=== PATIENT | female | born 1970 | race Caucasian/White ===

== ENCOUNTER 2016-11-02 12:50 | Emergency (ER) | payer OTHER ==
[2016-11-02 13:10] VITALS: BP 145/88
[2016-11-02] MEDS ORDERED: Ketorolac 60 MG/2 ML SDV IM ONE (13:41)
[2016-11-02] MEDS ORDERED: HYDROmorphone 0.5 MG/0.5 ML Syringe IVPUSH ONE (13:41)
--- NOTE | 2016-11-02 13:56 | EDM.PDOC ---
ED HPI LOWER BACK PAIN/INJURY - General Chief Complaint: Back Pain or Injury Stated Complaint: LT HIP PAIN Time Seen by Provider: 11/02/16 13:28 Source of Information: Reports: Patient History Limitations: Reports: No limitations - History of Present Illness INITIAL COMMENTS - FREE TEXT/NARRATIVE: Patient presents for evaluation and treatment of left low back pain. Patient reports that on Thursday she slipped on ice. She stated that she did not fall, no head trauma. She states that since then she has been experiencing some low back pain on the left side radiating to her left hip and down her left leg. She denies any pain to the right side. Patient states on Thursday she went to the clinic. She was given some prednisone and has been taking ibuprofen for the pain. She feels that the pain is worsening and not improving. Current symptoms include pain to the left low back with radiation to the left hip and left lower leg, numbness and tingling into the left leg. She denies any fevers, chills, nausea, vomiting, urinary incontinence, stool incontinence or any urinary symptoms. Patient is on prednisone 20 mg daily for 5 days. Symptom Onset Date: 10/29/16 Timing/Duration: Reports: Getting worse Location: Reports: lower, radiating pain Context: Reports: fall Associated Symptoms: Reports: Difficulty walking. Denies: Fever/chills, Nausea/ vomiting, Problems urinating Treatments HAT LINER: Reports: NSAIDS, Other medication(s) (prednisone 20mg) - Related Data Allergies/ADRs: Allergies Allergy/AdvReac Type Severity Reaction Status Date / Time No Known Allergies Allergy Verified 08/12/14 19:27 Home Meds: Home Meds Levothyroxine [Synthroid] 50 mcg PO ACBRK 08/12/14 [History] Omeprazole [Prilosec] 20 mg PO DAILY 08/12/14 [History] Orphenadrine [Norflex] 100 mg PO BID PRN #15 tab.er 11/02/16 [Rx] Prednisone [IMW: predniSONE] 40 mg PO WITHBREAKFAST #5 tab 11/02/16 [Rx] traMADol [Ultram] 50 mg PO Q6H PRN #12 tablet 11/02/16 [Rx] Past Medical History Gastrointestinal History: Reports: GERD Musculoskeletal History: Reports: Back pain, chronic Endocrine/Metabolic History: Reports: Hypothyroidism - Past Surgical History GI Surgical History: Reports: Appendectomy, Cholecystectomy Musculoskeletal Surgical History: Reports: Shoulder surgery Social & Family History - Tobacco Use Smoking Status *Q: Never Smoker Second Hand Smoke Exposure: No - Caffeine Use Caffeine Use: Reports: Soda, Tea - Alcohol Use Days Per Week of Alcohol Use: 0 - Recreational Drug Use Recreational Drug Use: No ED ROS GENERAL - Review of Systems Review Of Systems: See Below Constitutional: Denies: fever, chills GI/Abdominal: Denies: Stool incontinence : Denies: dysuria, flank pain, incontinence Musculoskeletal: Reports: back pain (left low back pain) Skin: Denies: wound Neurological: Reports: Numbness (left leg), Tingling (left leg), Difficulty Walking (due to pain) ED EXAM,LOWER BACK PAIN/INJURY - Physical Exam Exam: See Below Exam Limited By: No limitations General Appearance: alert, WD/WN, moderate distress Respiratory/Chest: no respiratory distress, lungs clear, normal breath sounds Cardiovascular: normal peripheral pulses, regular rate, rhythm, no murmur Back Exam: normal inspection, decreased range of motion (able to flex, extend, rotate and laterally flex with slight decreased in ROM and with minor pain) Neurological: alert, normal mood/affect, normal dorsiflexion, normal plantar flexion, straight leg raise (L), straight leg raise (R) (causes pain to left) Psychiatric: normal affect, normal mood Skin Exam: Warm, Dry, Normal color Course - Vital Signs Last Recorded V/S: Last Vital Signs Temp 36.8 C 11/02/16 13:09 Pulse 82 11/02/16 13:09 Resp 20 11/02/16 13:09 BP 145/88 H 11/02/16 13:09 Pulse Ox 98 11/02/16 13:09 - Orders/Labs/Meds Meds: Medications Discontinued Medications Generic Name Dose Route Start Last Admin Trade Name Freq PRN Reason Stop Dose Admin Hydromorphone HCl 0.5 mg 11/02/16 13:41 11/02/16 13:49 Dilaudid IVPUSH 11/02/16 13:42 0.5 mg ONETIME ONE Administration Ketorolac Tromethamine 60 mg 11/02/16 13:41 11/02/16 13:48 Toradol IM 11/02/16 13:42 60 mg ONETIME ONE Administration - Re-Assessments/Exams Free Text/Narrative Re-Assessment/Exam: 11/02/16 13:45 IM Toradol and Dilaudid for pain relief. Will extend her prednisone. I Do believe that she does have some sciatica. discussed x-rays. I do not feel that these will give us much additional information. We will discharge her home at this time. Discharge instructions as documented. Departure - Departure Time of Disposition: 13:48 Disposition: Home, Self-Care 01 Condition: fair Clinical Impression: Sciatica Prescriptions: Orphenadrine [Norflex] 100 mg PO BID PRN #15 tab.er PRN Reason: Muscle Spasm Prednisone [IMW: predniSONE] 40 mg PO WITHBREAKFAST #5 tab traMADol [Ultram] 50 mg PO Q6H PRN #12 tablet PRN Reason: Pain Instructions: Sciatica, [id number] Referrals: Sydnee Waddell [employer] PEELING MACHINE OPERATOR [Primary Care Provider] - Forms: ED Department Discharge Additional Instructions: you were given medication in the ER that can affect your ability to drive and operate machinery. No driving or operating machinery within 12 hours of taking prescription narcotic pain medication. Increase the prednisone to 40 mg or 2 tabs a day for the next 5 days. Take the Norflex one tab twice a day as needed for muscle pain and spasm. may take the tramadol as needed for severe pain. No driving or operating within 12 hours of taking the tramadol., Tramadol Can be habit-forming, I recommend you take as few of these as needed to control your pain. Utilize ice or moist heat to the sore areas. expect to Be sore for the next week. Should your symptoms persist beyond one week I recommend followup with Chen waddell Please return to the ER should your symptoms change or worsen.
== END 2016-11-02 14:08 | disposition home or self-care (01) ==
LOC: JD.ED 12:50
DX: M54.40 Lumbago with sciatica, unspecified side (principal); K21.9 Gastro-esophageal reflux disease without esophagitis; E03.9 Hypothyroidism, unspecified; Z90.49 Acquired absence of other specified parts of digestive tract; Z98.890 Other specified postprocedural states; Z79.899 Other long term (current) drug therapy
CPT/HCPCS: 96372; 99283; J1170; J1885; 99284

== ENCOUNTER 2018-10-06 14:02 | Inpatient (IN) | payer OTHER ==
--- NOTE | 2018-10-06 14:53 | EDM.PDOC ---
ED HPI GENERAL MEDICAL PROBLEM - General Chief Complaint: Respiratory Problem Stated Complaint: LOW O2 Time Seen by Provider: 10/06/18 14:53 Source of Information: Reports: Patient - History of Present Illness INITIAL COMMENTS - FREE TEXT/NARRATIVE: Patient is here today sent by her PCP from the clinic for evaluation of dyspnea , cough and hypoxia. Patient was actually initially diagnosed with influenza B in June. She states that her cough never fully went away after this. She began to feel quite run down last week, she was diagnosed with influenza on 10/01/2018. She was started on Tamiflu. Initially she was started on an albuterol inhaler but was not having any improvement with this so this was switched to an albuterol nebulizer. Patient was doing a nebulized albuterol treatments at home every 3 hours and still feeling very short of breath. She was back to the clinic today, for worsening symptoms. At that time her oxygen level was maintaining 86%. Even on 2 L of oxygen over there. Did not come above 90%. Patient states that she feels short of breath, is having a nonproductive cough No history of respiratory disease, no asthma or COPD. She has never smoked. - Related Data Allergies Allergy/AdvReac Type Severity Reaction Status Date / Time No Known Allergies Allergy Verified 10/06/18 14:26 Home Meds: Home Meds Levothyroxine [Synthroid] 50 mcg PO ACBRK 08/12/14 [History] Omeprazole [Prilosec] 20 mg PO DAILY 08/12/14 [History] Albuterol [Proventil Neb Soln] 1.25 mg NEB Q6H 10/06/18 [History] Oseltamivir [Tamiflu] 1 tab PO BID 10/06/18 [History] Past Medical History HEENT History: Reports: Impaired Vision Respiratory History: Reports: Bronchitis, Recurrent Other Respiratory History: hx influenza Gastrointestinal History: Reports: Cholelithiasis, GERD 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, Musculoskeletal History: Reports: Back Pain, Chronic Endocrine/Metabolic History: Reports: Hypothyroidism - Infectious Disease History Infectious Disease History: Reports: Influenza - Past Surgical History HEENT Surgical History: Reports: Oral Surgery GI Surgical History: Reports: Cholecystectomy Female Surgical History: Reports: Endometrial Ablation, Tubal Ligation Musculoskeletal Surgical History: Reports: Shoulder Surgery Social & Family History - Family History Family Medical History: Noncontributory - Tobacco Use Smoking Status *Q: Never Smoker - Caffeine Use Caffeine Use: Reports: Soda - Recreational Drug Use Recreational Drug Use: No - Living Situation & Occupation Living situation: Reports: , with Significant Other (Fiance) 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 Denies: Wheezing, Pleuritic Chest Pain, Sputum Cardiovascular: Reports: No Symptoms GI/Abdominal: Reports: Decreased Appetite. Denies: Nausea, Vomiting Musculoskeletal: Reports: No Symptoms Skin: Reports: No Symptoms Neurological: Reports: No Symptoms ED EXAM, GENERAL - Physical Exam Exam: See Below Exam Limited By: No Limitations General Appearance: Alert, WD/WN, Mild Distress (acutely ill) Eye Exam: Bilateral Eye: EOMI, Normal Inspection Ears: Normal External Exam, Normal Canal, Normal TMs Nose: Normal Inspection, Normal Mucosa Throat/Mouth: Normal Inspection, Normal Oropharynx Head: Atraumatic, Normocephalic Neck: Normal Inspection, Supple, Non-Tender Respiratory/Chest: No Respiratory Distress, Wheezing (Scattered mild wheeze bilaterally). No: Crackles, Rales, Rhonchi Cardiovascular: Regular Rate, Rhythm, No Murmur GI/Abdominal: Normal Bowel Sounds, Soft, Non-Tender Neurological: Alert, Oriented, No Motor/Sensory Deficits Psychiatric: Normal Affect, Normal Mood Skin Exam: Warm, Dry, Intact Course - Vital Signs Last Recorded V/S: Last Vital Signs Temp 98.0 F 10/06/18 14:28 Pulse 79 10/06/18 14:28 Resp 20 10/06/18 14:28 BP 132/73 10/06/18 14:28 Pulse Ox 73 L 10/06/18 16:54 - Orders/Labs/Meds Orders: Active Orders 24 hr Category Date Time Status Dextrose 5%-Lactated Ringers with KCl 20 mEq @ 150 mL/ Med 10/06/18 18:00 Ordered Hr (1000 mL) Dextrose 5%-Lact Ringers w/KCl [D5 LR with 20 mEq KCl] 1,000 ml IV ASDIRECTED Sodium Chloride 0.9% [Normal Saline] 100 ml Med 10/06/18 16:15 Active IV ASDIRECTED Medication Orders Sodium Chloride (Normal Saline) 100 mls @ 60 mls/hr IV ASDIRECTED CARO Last Admin: 10/06/18 16:23 Dose: 60 mls/hr Potassium Cl/Dextrose/Lact Ringer's (D5 Lr With 20 Meq Kcl) 1,000 mls @ 150 mls /hr IV ASDIRECTED CARO Labs: Laboratory Tests 10/06/18 10/06/18 10/06/18 Range/Units 15:15 15:15 15:15 WBC 5.17 (3.98-10.04) K/mm3 RBC 4.36 (3.98-5.22) M/mm3 Hgb 12.3 (11.2-15.7) gm/L Hct 38.0 (34.1-44.9) % MCV 87.2 (79.4-94.8) fl MCH 28.2 (25.6-32.2) pg MCHC 32.4 (32.2-35.5) g/dl RDW Std Deviation 39.8 (36.4-46.3) fL Plt Count 173 L (182-369) K/mm3 MPV 8.6 L (9.4-12.3) fl Neutrophils % (Manual) 83 H (40-60) % Band Neutrophils % 1 (0-10) % Lymphocytes % (Manual) 15 L (20-40) % Atypical Lymphs % 0 % Monocytes % (Manual) 1 L (2-10) % Eosinophils % (Manual) 0 L (0.7-5.8) % Basophils % (Manual) 0 L (0.1-1.2) Platelet Estimate Adequate RBC Morph Comment Normal D-Dimer, Quantitative 1.98 H (0.19-0.50) mg/L Sodium 135 L (136-145) mEq/L Potassium 3.0 L (3.5-5.1) mEq/L Chloride 96 L (98-107) mEq/L Carbon Dioxide 30 (21-32) mEq/L Anion Gap 12.0 (5-15) BUN 17 (7-18) mg/dL Creatinine 0.9 (0.55-1.02) mg/dL Est Cr Clr Drug Dosing 57.06 mL/min Estimated GFR (MDRD) > 60 (>60) mL/min BUN/Creatinine Ratio 18.9 H (14-18) Glucose 107 H (74-106) mg/dL Calcium 8.5 (8.5-10.1) mg/dL Total Bilirubin 0.3 (0.2-1.0) mg/dL AST 52 H (15-37) U/L ALT 45 (14-59) U/L Alkaline Phosphatase 68 (46-116) U/L Troponin I < 0.017 (0.00-0.056) ng/mL C-Reactive Protein 12.1 H* (<1.0) mg/dL Total Protein 7.8 (6.4-8.2) g/dl Albumin 3.0 L (3.4-5.0) g/dl Globulin 4.8 gm/dL Albumin/Globulin Ratio 0.6 L (1-2) Meds: Medications Generic Name Dose Route Start Last Admin Trade Name Freq PRN Reason Stop Dose Admin Sodium Chloride 100 mls @ 60 mls/hr 10/06/18 16:15 10/06/18 16:23 Normal Saline IV 60 mls/hr ASDIRECTED CARO Administration Potassium Cl/Dextrose/Lact Ringer's 1,000 mls @ 150 mls/hr 10/06/18 18:00 D5 Lr With 20 Meq Kcl IV ASDIRECTED CARO Discontinued Medications Generic Name Dose Route Start Last Admin Trade Name Freq PRN Reason Stop Dose Admin Azithromycin 500 mg 10/06/18 17:55 Zithromax PO 10/06/18 17:56 ONETIME ONE Sodium Chloride 1,000 mls @ 999 mls/hr 10/06/18 14:54 10/06/18 15:15 Normal Saline IV 10/06/18 15:54 999 mls/hr ONETIME ONE Administration Iopamidol 100 ml 10/06/18 16:13 10/06/18 16:22 [id number] (76%) IVPUSH 10/06/18 16:14 100 ml ONETIME ONE Administration Sodium Chloride 10 ml 10/06/18 16:13 10/06/18 16:23 Saline Flush FLUSH 10/06/18 16:14 10 ml ONETIME ONE Administration - Re-Assessments/Exams Free Text/Narrative Re-Assessment/Exam: Chest x-ray demonstrates pulmonary congestion, CTA of the chest was performed after her d-dimer was elevated and this demonstrated patchy increased density within both lungs. Differential including pulmonary edema from CHF versus multifocal pneumonia. Certainly with patient's history, pneumonia is the more likely cause of her symptoms. 10/06/18 17:58 WBC 5170 with 83 percent neutrophils and 1 band. Troponin negative. CRP 12.1. Potassium is low at 3.0, likely from her not eating much recently. Will add potassium to LR and start another liter of fluids. 10/06/18 18:01 Patient is maintaining 92-94% on 3 L of oxygen. This was taken off for her to walk to the bathroom and she did drop down to the mid 70s for oxygen saturation. With her pneumonia and hypoxia, discussed with Dr. Patton/hospitalist and patient will be admitted to [facility]. Her first dose of azithromycin 500 mg will be administered here in the emergency department. She is a full code. 10/06/18 18:06 Departure - Departure Time of Disposition: 18:07 Disposition: Refer to Observation Condition: Fair Clinical Impression: Influenza A, Pneumonia, Hypoxia, Hypokalemia - Discharge Information Referrals: Sydnee Waddell, SENIOR WEALTH ADVISOR [Primary Care Provider] - Forms: ED Department Discharge - My Orders Last 24 Hours: My Active Orders 10/06/18 16:15 Sodium Chloride 0.9% [Normal Saline] 100 ml IV ASDIRECTED 10/06/18 18:00 Dextrose 5%-Lactated Ringers with KCl 20 mEq @ 150 mL/Hr (1000 mL) Dextrose 5%- Lact Ringers w/KCl [D5 LR with 20 mEq KCl] 1,000 ml IV ASDIRECTED - Assessment/Plan Last 24 Hours: My Active Orders 10/06/18 16:15 Sodium Chloride 0.9% [Normal Saline] 100 ml IV ASDIRECTED 10/06/18 18:00 Dextrose 5%-Lactated Ringers with KCl 20 mEq @ 150 mL/Hr (1000 mL) Dextrose 5%- Lact Ringers w/KCl [D5 LR with 20 mEq KCl] 1,000 ml IV ASDIRECTED
[2018-10-06] MEDS ORDERED: Sodium Chloride 0.9% 1,000 ML IV ONE (14:54)
[2018-10-06] MEDS ORDERED: Iopamidol 755 Mg/ML 100 ML Bottle IVPUSH ONE (16:13)
[2018-10-06] MEDS ORDERED: Sodium Chloride 0.9% 100 ML IV SCH (16:15)
[2018-10-06] MEDS: Sodium Chloride 0.9% 10 ML Syringe FLUSH ONE ×2 (16:22→16:23)
--- NOTE | 2018-10-06 16:55 | CT ---
CT chest Technique: Multiple axial sections through the chest were obtained. Intravenous contrast was utilized. Study has been performed as a pulmonary angiogram protocol. Findings: Pulmonary arteries are moderately opacified. No filling defects are seen to indicate pulmonary embolism. Mediastinum shows slightly prominent lymph nodes most likely on a previous inflammatory basis. Aorta shows no aneurysm. Heart is enlarged. Diffuse fatty infiltration is seen throughout the liver. Bilateral patchy areas of increased density are seen within both lungs. Differential includes areas of pulmonary edema versus multifocal pneumonia. Impression: 1. Cardiomegaly. Fatty infiltration within the liver. 2. No findings of pulmonary embolism. 3. Patchy increased density within both lungs with differential including pulmonary edema from CHF versus multifocal pneumonia. Diagnostic code #3
--- NOTE | 2018-10-06 16:55 | CR ---
Chest: Two views of the chest were obtained. Comparison: Prior chest x-ray of 08/10/18. Heart is slightly enlarged. Pulmonary vessels are felt to be mildly congested. Lungs otherwise are clear. Bony structures appear within normal limits for the patient's age. Impression: 1. Findings suspicious for mild CHF. Diagnostic code #3
[2018-10-06] MEDS ORDERED: Azithromycin 250 MG Tab PO ONE (17:55)
[2018-10-06] MEDS: Dextrose 5%-Lact Ringers w/KCl 1,000 ML IV SCH (18:24)
[2018-10-06] MEDS ORDERED: hydrALAZINE 20 MG/ML SDV IVPUSH PRN (18:58)
[2018-10-06] MEDS ORDERED: Metoprolol Tartrate 5 MG/5 ML SDV IVPUSH PRN (18:58)
[2018-10-06] MEDS ORDERED: Ondansetron 4 MG/2 ML SDV IV PRN (18:59)
[2018-10-06] MEDS ORDERED: Ketorolac 30 MG/ML SDV IV PRN (18:59)
[2018-10-06] MEDS ORDERED: Docusate Sodium 100 MG Cap PO PRN (18:59)
[2018-10-06] MEDS ORDERED: Albuterol/Ipratropium 3.0-0.5 MG/3 ML Neb Soln NEB PRN (18:59)
[2018-10-06] MEDS ORDERED: HYDROmorphone 1 MG/ML Syringe IVPUSH PRN (18:59)
[2018-10-06] MEDS ORDERED: LORazepam 2 MG/ML SDV IV PRN (18:59)
[2018-10-06] MEDS ORDERED: Polyethylene Glycol 3350 Powder 17 GM Packet PO PRN (18:59)
[2018-10-06] MEDS ORDERED: Acetaminophen 325 MG Tab PO PRN (18:59)
[2018-10-06] MEDS ORDERED: Temazepam 15 MG Cap PO PRN (18:59)
[2018-10-06] MEDS ORDERED: Bisacodyl 5 MG Tab PO PRN (18:59)
[2018-10-06] MEDS ORDERED: Albuterol 0.042% 1.25 MG/3 ML Neb Soln NEB SCH (19:00)
[2018-10-06] MEDS ORDERED: cefTRIAXone 1 GM in Sodium Chloride 0.9% 100 ML IV ONE (19:05)
[2018-10-06 19:36] LABS: HEMOGLOBIN A1C 6.2 % (4.50-6.20)
[2018-10-06] MEDS ORDERED: Potassium Chloride 20 MEQ Tab.ER PO STA (19:47)
[2018-10-06] MEDS: Albuterol 0.042% 1.25 MG/3 ML Neb Soln NEB SCH (20:58)
[2018-10-06] MEDS ORDERED: Oseltamivir 30 MG Cap PO SCH (21:00)
[2018-10-06] MEDS ORDERED: guaiFENesin/Dextromethorphan 100-10 MG/5 ML Soln 5 ML Cup PO PRN (21:00)
[2018-10-06] MEDS ORDERED: Aluminum Hydroxide/Magnesium Hydroxide/Simethicone Susp 30 ML Cup PO PRN (21:12)
[2018-10-07] MEDS: Potassium Chloride 20 MEQ Tab.ER PO SCH ×2 (00:40→03:47)
[2018-10-07] MEDS: Albuterol 0.042% 1.25 MG/3 ML Neb Soln NEB SCH (02:26)
[2018-10-07] MEDS: Dextrose 5%-Lact Ringers w/KCl 1,000 ML IV SCH ×3 (03:47→19:47)
[2018-10-07] MEDS: Pantoprazole 40 MG Tab.CR PO SCH (06:20)
[2018-10-07] MEDS: Levothyroxine 50 MCG Tab PO SCH (06:20)
--- NOTE | 2018-10-07 07:54 | PCM.HP ---
H&P History of Present Illness - General Date of Service: 10/07/18 Admit Problem/Dx: Admission Diagnosis/Problem Admission Diagnosis/Problem Pneumonia Source of Information: Patient, Old Records, Provider, RN, RN Notes Reviewed History Limitations: Reports: No Limitations - History of Present Illness Initial Comments - Free Text/Narative: Soco Landaverde is a 48 yo female who presented to our ED on 10/06/18 after being seen by her PCP for celiac, coughinfluenza B in June reports her cough never fully went away after this. Over the last week she started to feel run down again and was diagnosed on 10/01/18 with influenza. She was then started on Tamiflu. She started on albuterol inhaler but did not have any improvement so she was switched and nebulizers. She's been doing albuterol treatments for 3 hours and still feels short of breath. She returned to her PCP office and saturations were found to be 86%. She was placed on 2 L of oxygen and sats remained below 90. Reports shortness of breath and nonproductive cough. She has no history of any airway disease, asthma, or COPD. She was never a smoker. In the ED temperature 90.8F. Pulse 79. Respirations 20. Blood pressure 132/ 73. Pulse ox is very low at 73%. Labs are obtained: CBC is 5.17. Hemoglobin 12.3. Hematocrit 30.0. She's normocytic. Pulse are low at 173,000. Neutrophils are elevated at 83%. Band neutrophils are 1%. Her is high at 1.98. Sodium low at 135. Potassium low at 3.0. Chloride low at 96. Prophylaxis 30. Anion gap is 12. BUN is 17. Creatinine 0.9. GFR is greater than 60. Glucose was 7. Calcium 8.5. Total bilirubin 0.3. AST 52, ALT 45, alkaline phosphatase 68. Troponin is less than 0.017. CRP is high at 12.1. It protein 7.8. Albumin is 3.0. She started on D5 LR with 20 minute once potassium and 150 mils an hour. She is also given azithromycin. Chest x-ray shows a slightly enlarged heart and mildly congested pulmonary vessels. Findings suspicious for CHF. CT of the chest obtained and interpreted by Dr. Orr as "1. Cardiomegaly. Fatty infiltration within the liver. 2. No findings of pulmonary embolism. 3. Patchy increased density within both lungs with differential including pulmonary edema from CHF versus multifocal pneumonia. She is placed on 3 L of oxygen and maintain sats in the 92-94 range , however when she was taken off oxygen and attempted to walk to the restroom her saturations dropped to the mid 70s. She carries a history of: Recurrent bronchitis, influenza, cholestasis, GERD, endometrial ablation, chronic back pain, hypothyroidism. She was never a smoker. Her PCP is Aurora Waddell NP. She is a full code. - Related Data Allergies/Adverse Reactions: Allergies Allergy/AdvReac Type Severity Reaction Status Date / Time No Known Allergies Allergy Verified 10/06/18 14:26 Home Medications: Home Meds Levothyroxine [Synthroid] 50 mcg PO ACBRK 08/12/14 [History] Omeprazole [Prilosec] 20 mg PO DAILY 08/12/14 [History] Albuterol [Proventil Neb Soln] 1.25 mg NEB Q6H 10/06/18 [History] Oseltamivir [Tamiflu] 1 tab PO BID 10/06/18 [History] Past Medical History HEENT History: Reports: Other (See Below) Other HEENT History: past ear surgery r/t ear fluttering Cardiovascular History: Reports: None Respiratory History: Reports: Bronchitis, Recurrent, Sleep Apnea, Other (See Below) Other Respiratory History: hx influenza past two years Gastrointestinal History: Reports: Cholelithiasis, 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: Reports: Endometrial Ablation, Musculoskeletal History: Reports: Back Pain, Chronic Endocrine/Metabolic History: Reports: Hypothyroidism - Infectious Disease History Infectious Disease History: Reports: Influenza Other Infectious Disease History: influenze B positive in June/ER in July - Past Surgical History HEENT Surgical History: Reports: None GI Surgical History: Reports: Cholecystectomy Female Surgical History: Reports: Endometrial Ablation, Tubal Ligation Endocrine Surgical History: Reports: None Musculoskeletal Surgical History: Reports: Shoulder Surgery, Other (See Below) Other Musculoskeletal Surgeries/Procedures:: shoulder surgery x2 with rotator cuff repair Social & Family History - Family History Family Medical History: Noncontributory - Tobacco Use Smoking Status *Q: Never Smoker Second Hand Smoke Exposure: No - Caffeine Use Caffeine Use: Reports: Soda - Recreational Drug Use Recreational Drug Use: No - Living Situation & Occupation Living situation: Reports: , with Significant Other (Fiance) 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 Denies: Fever , Chills HEENT: Denies: No Symptoms, Headaches, Rhinitis Pulmonary: Reports: Shortness of Breath, Cough. Denies: Wheezing, Pleuritic Chest Pain, Sputum Cardiovascular: Reports: Dyspnea on Exertion. Denies: Chest Pain, Palpitations , Orthopnea, Edema, Lightheadedness, Claudication Gastrointestinal: Reports: No Symptoms. Denies: Abdominal Pain, Constipation, Diarrhea, Nausea, Vomiting Genitourinary: Reports: No Symptoms. Denies: Dysuria, Frequency, Burning, Pain Musculoskeletal: Reports: No Symptoms Skin: Reports: No Symptoms Psychiatric: Reports: No Symptoms. Denies: Confusion Neurological: Reports: No Symptoms. Denies: Headache, Numbness, Pre-Existing Deficit, Trouble Speaking, Difficulty Walking, Change in Speech, Gait Disturbance Hematologic/Lymphatic: Reports: No Symptoms Immunologic: Reports: No Symptoms Exam - Exam Exam: See Below - Vital Signs Vital Signs: Last Vital Signs Temp 98.4 F 10/06/18 20:37 Pulse 79 10/07/18 03:50 Resp 18 10/07/18 03:50 BP 100/50 L 10/07/18 03:50 Pulse Ox 94 L 10/07/18 03:50 Weight: 211 lb 4.8 oz - Exam Quality Assessment: Supplemental Oxygen, DVT Prophylaxis General: Alert, Oriented, Cooperative. No: Mild Distress (but looks ill) HEENT: Conjunctiva Clear, EACs Clear, EOMI, Hearing Intact, Mucosa Moist & [place] , Normal Nasal Septum, Posterior Pharynx Clear Neck: Supple, Trachea Midline Lungs: Normal Respiratory Effort, Wheezing. No: Decreased Breath Sounds, Rales , Rhonchi Cardiovascular: Regular Rate, Regular Rhythm GI/Abdominal Exam: Normal Bowel Sounds, Soft, Non-Tender, No Organomegaly, No Distention (Female) Exam: Deferred Rectal (Female) Exam: Deferred Back Exam: Normal Inspection, Full Range of Motion Extremities: Normal Inspection, Normal Range of Motion, Non-Tender, No Pedal Edema, Normal Capillary Refill Peripheral Pulses: 2+: Radial (L), Radial (R), Dorsalis Pedis (L), Dorsalis Pedis (R) Skin: Warm, Dry, Intact Neurological: Cranial Nerves Intact (grossly ) Neuro Extensive - Mental Status: Alert, Oriented x3, Normal Mood/Affect, Normal Cognition - Patient Data Lab Results Last 24 hrs: Laboratory Results - last 24 hr 10/06/18 10/06/18 10/06/18 Range/Units 15:15 15:15 15:15 WBC 5.17 (3.98-10.04) K/mm3 RBC 4.36 (3.98-5.22) M/mm3 Hgb 12.3 (11.2-15.7) gm/L Hct 38.0 (34.1-44.9) % MCV 87.2 (79.4-94.8) fl MCH 28.2 (25.6-32.2) pg MCHC 32.4 (32.2-35.5) g/dl RDW Std Deviation 39.8 (36.4-46.3) fL Plt Count 173 L (182-369) K/mm3 MPV 8.6 L (9.4-12.3) fl Neut % (Auto) (34.0-71.1) % Lymph % (Auto) (19.3-51.7) % [place] % (Auto) (4.7-12.5) % Eos % (Auto) (0.7-5.8) Baso % (Auto) (0.1-1.2) % Neut # (Auto) (1.56-6.13) K/mm3 Lymph # (Auto) (1.18-3.74) K/mm3 [place] # (Auto) (0.24-0.36) K/mm3 Eos # (Auto) (0.04-0.36) K/mm3 Baso # (Auto) (0.01-0.08) K/mm3 Neutrophils % (Manual) 83 H (40-60) % Band Neutrophils % 1 (0-10) % Lymphocytes % (Manual) 15 L (20-40) % Atypical Lymphs % 0 % Monocytes % (Manual) 1 L (2-10) % Eosinophils % (Manual) 0 L (0.7-5.8) % Basophils % (Manual) 0 L (0.1-1.2) Platelet Estimate Adequate RBC Morph Comment Normal D-Dimer, Quantitative 1.98 H (0.19-0.50) mg/L Sodium 135 L (136-145) mEq/L Potassium 3.0 L (3.5-5.1) mEq/L Chloride 96 L (98-107) mEq/L Carbon Dioxide 30 (21-32) mEq/L Anion Gap 12.0 (5-15) BUN 17 (7-18) mg/dL Creatinine 0.9 (0.55-1.02) mg/dL Est Cr Clr Drug Dosing 57.06 mL/min Estimated GFR (MDRD) > 60 (>60) mL/min BUN/Creatinine Ratio 18.9 H (14-18) Glucose 107 H (74-106) mg/dL Hemoglobin A1c (4.50-6.20) % Calcium 8.5 (8.5-10.1) mg/dL Magnesium (1.8-2.4) mg/dl Total Bilirubin 0.3 (0.2-1.0) mg/dL AST 52 H (15-37) U/L ALT 45 (14-59) U/L Alkaline Phosphatase 68 (46-116) U/L Troponin I < 0.017 (0.00-0.056) ng/mL C-Reactive Protein 12.1 H* (<1.0) mg/dL Total Protein 7.8 (6.4-8.2) g/dl Albumin 3.0 L (3.4-5.0) g/dl Globulin 4.8 gm/dL Albumin/Globulin Ratio 0.6 L (1-2) HCG, Qual (NEGATIVE) Mycoplasma pneumon IgM (NEGATIVE) 10/06/18 10/06/18 10/06/18 Range/Units 15:15 15:15 15:15 WBC (3.98-10.04) K/mm3 RBC (3.98-5.22) M/mm3 Hgb (11.2-15.7) gm/L Hct (34.1-44.9) % MCV (79.4-94.8) fl MCH (25.6-32.2) pg MCHC (32.2-35.5) g/dl RDW Std Deviation (36.4-46.3) fL Plt Count (182-369) K/mm3 MPV (9.4-12.3) fl Neut % (Auto) (34.0-71.1) % Lymph % (Auto) (19.3-51.7) % [place] % (Auto) (4.7-12.5) % Eos % (Auto) (0.7-5.8) Baso % (Auto) (0.1-1.2) % Neut # (Auto) (1.56-6.13) K/mm3 Lymph # (Auto) (1.18-3.74) K/mm3 [place] # (Auto) (0.24-0.36) K/mm3 Eos # (Auto) (0.04-0.36) K/mm3 Baso # (Auto) (0.01-0.08) K/mm3 Neutrophils % (Manual) (40-60) % Band Neutrophils % (0-10) % Lymphocytes % (Manual) (20-40) % Atypical Lymphs % % Monocytes % (Manual) (2-10) % Eosinophils % (Manual) (0.7-5.8) % Basophils % (Manual) (0.1-1.2) Platelet Estimate RBC Morph Comment D-Dimer, Quantitative (0.19-0.50) mg/L Sodium (136-145) mEq/L Potassium (3.5-5.1) mEq/L Chloride (98-107) mEq/L Carbon Dioxide (21-32) mEq/L Anion Gap (5-15) BUN (7-18) mg/dL Creatinine (0.55-1.02) mg/dL Est Cr Clr Drug Dosing mL/min Estimated GFR (MDRD) (>60) mL/min BUN/Creatinine Ratio (14-18) Glucose (74-106) mg/dL Hemoglobin A1c 6.20 (4.50-6.20) % Calcium (8.5-10.1) mg/dL Magnesium (1.8-2.4) mg/dl Total Bilirubin (0.2-1.0) mg/dL AST (15-37) U/L ALT (14-59) U/L Alkaline Phosphatase (46-116) U/L Troponin I (0.00-0.056) ng/mL C-Reactive Protein (<1.0) mg/dL Total Protein (6.4-8.2) g/dl Albumin (3.4-5.0) g/dl Globulin gm/dL Albumin/Globulin Ratio (1-2) HCG, Qual Negative (NEGATIVE) Mycoplasma pneumon IgM Negative (NEGATIVE) 10/07/18 10/07/18 Range/Units 05:25 05:29 WBC 4.22 (3.98-10.04) K/mm3 RBC 3.79 L (3.98-5.22) M/mm3 Hgb 10.9 L (11.2-15.7) gm/L Hct 33.7 L (34.1-44.9) % MCV 88.9 (79.4-94.8) fl MCH 28.8 (25.6-32.2) pg MCHC 32.3 (32.2-35.5) g/dl RDW Std Deviation 40.4 (36.4-46.3) fL Plt Count 164 L (182-369) K/mm3 MPV 9.1 L (9.4-12.3) fl Neut % (Auto) 56.2 (34.0-71.1) % Lymph % (Auto) 35.3 (19.3-51.7) % [place] % (Auto) 7.8 (4.7-12.5) % Eos % (Auto) 0.2 L (0.7-5.8) Baso % (Auto) 0.5 (0.1-1.2) % Neut # (Auto) 2.37 (1.56-6.13) K/mm3 Lymph # (Auto) 1.49 (1.18-3.74) K/mm3 [place] # (Auto) 0.33 (0.24-0.36) K/mm3 Eos # (Auto) 0.01 L (0.04-0.36) K/mm3 Baso # (Auto) 0.02 (0.01-0.08) K/mm3 Neutrophils % (Manual) (40-60) % Band Neutrophils % (0-10) % Lymphocytes % (Manual) (20-40) % Atypical Lymphs % % Monocytes % (Manual) (2-10) % Eosinophils % (Manual) (0.7-5.8) % Basophils % (Manual) (0.1-1.2) Platelet Estimate RBC Morph Comment D-Dimer, Quantitative (0.19-0.50) mg/L Sodium 138 (136-145) mEq/L Potassium 4.6 (3.5-5.1) mEq/L Chloride 103 (98-107) mEq/L Carbon Dioxide 28 (21-32) mEq/L Anion Gap 11.6 (5-15) BUN 12 (7-18) mg/dL Creatinine 0.7 (0.55-1.02) mg/dL Est Cr Clr Drug Dosing 73.36 mL/min Estimated GFR (MDRD) > 60 (>60) mL/min BUN/Creatinine Ratio 17.1 (14-18) Glucose 121 H (74-106) mg/dL Hemoglobin A1c (4.50-6.20) % Calcium 7.9 L (8.5-10.1) mg/dL Magnesium 2.0 (1.8-2.4) mg/dl Total Bilirubin (0.2-1.0) mg/dL AST (15-37) U/L ALT (14-59) U/L Alkaline Phosphatase (46-116) U/L Troponin I (0.00-0.056) ng/mL C-Reactive Protein 6.2 H* (<1.0) mg/dL Total Protein (6.4-8.2) g/dl Albumin (3.4-5.0) g/dl Globulin gm/dL Albumin/Globulin Ratio (1-2) HCG, Qual (NEGATIVE) Mycoplasma pneumon IgM (NEGATIVE) Result Diagrams: 10/07/18 14:00 10/07/18 05:25 - Problem List (1) Hypokalemia SNOMED Code(s): 00285787 ICD Code: E87.6 - HYPOKALEMIA Status: Acute Priority: High Current Visit: Yes (2) Hypoxia SNOMED Code(s): 857759608 ICD Code: R09.02 - HYPOXEMIA Status: Acute Priority: High Current Visit : Yes (3) Influenza A SNOMED Code(s): 138357233 ICD Code: J10.1 - FLU DUE TO OTH IDENT INFLUENZA VIRUS W OTH RESP MANIFEST Status: Acute Priority: High Current Visit: Yes (4) Pneumonia SNOMED Code(s): 229499343 ICD Code: J18.9 - PNEUMONIA, UNSPECIFIED ORGANISM Status: Acute Priority : High Current Visit: Yes Qualifiers: Pneumonia type: due to unspecified organism Laterality: bilateral Lung location: lower lobe of lung Qualified Code(s): J18.1 - Lobar pneumonia, unspecified organism (5) Pre-diabetes SNOMED Code(s): 804854697 ICD Code: R73.03 - PREDIABETES Status: Acute Priority: Medium Current Visit: Yes Problem List Initiated/Reviewed/Updated: Yes Orders Last 24hrs: Active Orders 24 hr Category Date Time Status Patient Status [ADT] Routine ADT 10/06/18 19:13 Active Flutter Valve Therapy [RT Chest Physiotherapy] [RC] Care 10/06/18 19:06 Active ASDIRECTED Height and Weight [RC] 04 Care 10/06/18 18:59 Active Incentive Spirometry [RT Incentive Spirometry] [RC] Care 10/06/18 19:06 Active Q1HWA Influenza Vaccine Charge [RC] .DISCHARGE Care 10/06/18 22:11 Active Intake and Output [RC] 04,16 Care 10/06/18 18:59 Active Oxygen Therapy [RC] PRN Care 10/06/18 18:59 Active RT Aerosol Therapy [RC] ASDIRECTED Care 10/06/18 19:02 Active Up With Assistance [RC] ASDIRECTED Care 10/06/18 18:59 Active Up ad Sona [RC] ASDIRECTED Care 10/06/18 18:59 Active VTE/DVT Education [RC] PER UNIT ROUTINE Care 10/06/18 18:59 Active Vital Signs [RC] Q4HR Care 10/06/18 18:59 Active Consult to Diabetic Nurse Specialist [CONS] Routine Cons 10/07/18 06:53 Active Consult to Dietary [Consult to Mechanical Designer] [CONS] Cons 10/06/18 19:11 Active Routine Respiratory Care Assess and Treatment [CONS] Routine Cons 10/06/18 18:59 Active Regular Diet [DIET] Diet 10/06/18 Dinner Active BASIC METABOLIC PANEL,BMP [CHEM] AM Lab 10/08/18 05:11 Ordered BASIC METABOLIC PANEL,BMP [CHEM] AM Lab 10/09/18 05:11 Ordered BASIC METABOLIC PANEL,BMP [CHEM] AM Lab 10/10/18 05:11 Ordered BASIC METABOLIC PANEL,BMP [CHEM] AM Lab 10/11/18 05:11 Ordered C-REACTIVE PROTEIN [CHEM] AM Lab 10/08/18 05:11 Ordered C-REACTIVE PROTEIN [CHEM] AM Lab 10/09/18 05:11 Ordered C-REACTIVE PROTEIN [CHEM] AM Lab 10/10/18 05:11 Ordered C-REACTIVE PROTEIN [CHEM] AM Lab 10/11/18 05:11 Ordered CBC WITH AUTO DIFF [HEME] AM Lab 10/07/18 05:29 Results CBC WITH AUTO DIFF [HEME] AM Lab 10/08/18 05:11 Ordered CBC WITH AUTO DIFF [HEME] AM Lab 10/09/18 05:11 Ordered CBC WITH AUTO DIFF [HEME] AM Lab 10/10/18 05:11 Ordered CBC WITH AUTO DIFF [HEME] AM Lab 10/11/18 05:11 Ordered CULTURE BLOOD [BC] Stat Lab 10/06/18 20:00 Received CULTURE BLOOD [BC] Stat Lab 10/06/18 20:10 Received CULTURE SPUTUM + SMEAR [RM] Stat Lab 10/06/18 18:59 Ordered MAGNESIUM [CHEM] AM Lab 10/08/18 05:11 Ordered MAGNESIUM [CHEM] AM Lab 10/09/18 05:11 Ordered MAGNESIUM [CHEM] AM Lab 10/10/18 05:11 Ordered MAGNESIUM [CHEM] AM Lab 10/11/18 05:11 Ordered PROCALCITONIN [REF] Routine Lab 10/06/18 20:00 Received RESPIRATORY PANEL Stat Lab 10/06/18 22:00 Received STREP PNEUMONIAE ANTIGEN [MREF] Stat Lab 10/06/18 21:54 Received Acetaminophen [Tylenol] Med 10/06/18 18:59 Active 650 mg PO Q4H PRN Albuterol [Proventil Neb Soln] Med 10/06/18 21:00 Active 1.25 mg NEB Q6H Albuterol/Ipratropium [DuoNeb 3.0-0.5 MG/3 ML] Med 10/06/18 18:59 Active 3 ml NEB Q4H PRN Alum Hydrox/Mag Hydrox/Simeth [Mag-Al Plus] Med 10/06/18 21:12 Active 30 ml PO Q4H PRN Azithromycin [Zithromax] 500 mg Med 10/07/18 09:00 Active Sodium Chloride 0.9% [Normal Saline] 250 ml IV Q24H Bisacodyl [Dulcolax] Med 10/06/18 18:59 Active 5 mg PO DAILY PRN Dextromethorphan/guaiFENesin [Robitussin DM] Med 10/06/18 21:00 Active 10 ml PO TID@0700,1400,2100 PRN Dextrose 5%-Lact Ringers w/KCl [D5 LR with 20 mEq KCl] Med 10/06/18 18:00 Active 1,000 ml IV ASDIRECTED Docusate Sodium [Colace] Med 10/06/18 18:59 Active 100 mg PO BID PRN Docusate Sodium/Sennosides [Senna Plus] Med 10/06/18 18:59 Active 1 tab PO BID PRN Enoxaparin [Lovenox] Med 10/07/18 09:00 Active 40 mg SUBCUT DAILY FLU Vacc [id number] 36MOS UP/PF [Fluzone Quad 5621-4574 Med 10/07/18 10:00 Once Syringe] 60 mcg IM .ONCE ONE HYDROmorphone [Dilaudid] Med 10/06/18 18:59 Active 0.5 mg IVPUSH Q2H PRN Ketorolac [Toradol] Med 10/06/18 18:59 Active 30 mg IV Q6H PRN LORazepam [Ativan] Med 10/06/18 18:59 Active 0.5 mg IV Q6H PRN Levothyroxine [Synthroid] Med 10/07/18 06:00 Active 50 mcg PO ACBRK Metoprolol Tartrate [Lopressor] Med 10/06/18 18:58 Active 5 mg IVPUSH Q4H PRN Ondansetron [Zofran] Med 10/06/18 18:59 Active 4 mg IV Q6H PRN Oseltamivir [Tamiflu] Med 10/06/18 21:00 Active 30 mg PO BID Pantoprazole [ProTONIX] Med 10/07/18 07:00 Active 40 mg PO DAILY@0700 Pharmacy to Dose - Magnesium R [Pharmacy to Dose - Med 10/07/18 07:00 Active Magnesium Replacement] 0 dose .XX ASDIRECTED PRN Pharmacy to Dose - Potassium R [Pharmacy to Dose - Med 10/06/18 19:00 Active Potassium Replacement] 0 dose .XX ASDIRECTED PRN Polyethylene Glycol 3350 [MiraLAX] Med 10/06/18 18:59 Active 17 gm PO DAILY PRN Saccharomyces Boulardii [Florastor] Med 10/07/18 09:00 Active 250 mg PO DAILY Temazepam [Restoril] Med 10/06/18 18:59 Active 15 mg PO BEDTIME PRN cefTRIAXone [Rocephin] 1 gm Med 10/07/18 21:00 Active Sodium Chloride 0.9% [Normal Saline] 100 ml IV Q24H hydrALAZINE [Apresoline] Med 10/06/18 18:58 Active 20 mg IVPUSH Q4H PRN Blood Culture x2 Reflex Set [OM.PC] Stat Oth 10/06/18 18:59 Ordered Resuscitation Status Routine Resus Stat 10/06/18 18:59 Ordered Medication Orders Acetaminophen (Tylenol) 650 mg PO Q4H PRN PRN Reason: Pain (Mild 1-3)/fever Al Hydroxide/Mg Hydroxide (Mag-Al Plus) 30 ml PO Q4H PRN PRN Reason: Heartburn Albuterol (Proventil Neb Soln) 1.25 mg NEB Q6H [facility] Last Admin: 10/07/18 02:26 Dose: 1.25 mg Admin: 10/06/18 20:58 Dose: 1.25 mg Albuterol/Ipratropium (Duoneb 3.0-0.5 Mg/3 Ml) 3 ml NEB Q4H PRN PRN Reason: Shortness Of Breath/wheezing Bisacodyl (Dulcolax) 5 mg PO DAILY PRN PRN Reason: Constipation Docusate Sodium (Colace) 100 mg PO BID PRN PRN Reason: Constipation Enoxaparin Sodium (Lovenox) 40 mg SUBCUT DAILY [facility] Guaifenesin/Phenylephrine HCl (Robitussin Dm) 10 ml PO TID@0700,1400,2100 PRN PRN Reason: Cough Hydralazine HCl (Apresoline) 20 mg IVPUSH Q4H PRN PRN Reason: Hypertension Hydromorphone HCl (Dilaudid) 0.5 mg IVPUSH Q2H PRN PRN Reason: Pain (severe 7-10) Potassium Cl/Dextrose/Lact Ringer's (D5 Lr With 20 Meq Kcl) 1,000 mls @ 150 mls /hr IV ASDIRECTED [facility] Last Admin: 10/07/18 03:47 Dose: 150 mls/hr Infusion: 10/07/18 01:05 Dose: 150 mls/hr Admin: 10/06/18 18:24 Dose: 150 mls/hr Azithromycin 500 mg/ Sodium (Chloride) 250 mls @ 250 mls/hr IV Q24H [facility] Ceftriaxone Sodium 1 gm/ (Sodium Chloride) 100 mls @ 200 mls/hr IV Q24H [facility] Influenza Virus Vaccine (Fluzone Quad [id number] Syringe) 60 mcg IM .ONCE ONE Stop: 10/07/18 10:01 Ketorolac Tromethamine (Toradol) 30 mg IV Q6H PRN PRN Reason: Pain (moderate 4-6) Levothyroxine Sodium (Synthroid) 50 mcg PO ACBRK [facility] Last Admin: 10/07/18 06:20 Dose: 50 mcg Lorazepam (Ativan) 0.5 mg IV Q6H PRN PRN Reason: Anxiety Magnesium Sulfate (Pharmacy To Dose - Magnesium Replacement) 0 dose .XX ASDIRECTED PRN PRN Reason: RX TO WATCH MAG LEVELS Metoprolol Tartrate (Lopressor) 5 mg IVPUSH Q4H PRN PRN Reason: Tachycardia Ondansetron HCl (Zofran) 4 mg IV Q6H PRN PRN Reason: Nausea/Vomiting Oseltamivir Phosphate (Tamiflu) 30 mg PO BID [facility] Last Admin: 10/06/18 21:37 Dose: 30 mg Pantoprazole Sodium (Protonix) 40 mg PO DAILY@0700 [facility] Last Admin: 10/07/18 06:20 Dose: 40 mg Polyethylene Glycol (Miralax) 17 gm PO DAILY PRN PRN Reason: Constipation Potassium Chloride (Pharmacy To Dose - Potassium Replacement) 0 dose .XX ASDIRECTED PRN PRN Reason: RX TO WATCH K LEVELS Saccharomyces Boulardii (Florastor) 250 mg PO DAILY [facility] Senna/Docusate Sodium (Senna Plus) 1 tab PO BID PRN PRN Reason: Constipation Temazepam (Restoril) 15 mg PO BEDTIME PRN PRN Reason: Sleep Assessment/Plan Comment:: I/P: Acute CAP -Reports dyspena, cough, hypoxia -Has been taking albuterol inhaler and eventually albuterol nebulizers with minimal help -O2 in clinic was 86% -No chronic respiratory history -CXR in ED: Findings suspicious for mild CHF -CTA in ED: * 1. Cardiomegaly. Fatty infiltration within the liver. * 2. No findings of pulmonary embolism. * 3. Patchy increased density within both lungs with differential including pulmonary edema from CHF versus multifocal pneumonia. -Denies any cardiac history, edema, orthopnea -Robitussin TID scheduled PRN -Scheduled QID Duonebs -Rocephin 1gm Daily -Azithromycin 250mg daily -RT/Acapell/IS -VRP Pending -Sputum culture ordered -Mycoplasma negative -Strep Pneumo pending -Blood cultures pending -No leukocytosis -CRP 12.1-->6.2 -O2 as needed Influenza A -Diagnosed with influenza B in June -Diagnosed with influenza A on 10/01/18 -Continue home tamiflu -supportive care Hypoxia -Oxygen saturations of 86% in clinic -Required 2L in ED with difficulty maintaining saturations above 90% -2/2 above -Treat underlying cause "Pre-Diabetic" -A1C of 6.2 -diabetic educator consult for lifestyle changes -Continued monitoring by PCP Resolved: Hypokalemia -Potassium 3.0 in ED-->4.6 -2/2 inadequate intake, poor appetite -Supplemented Chronic: Impaired vision Recurrent bronchitis Cholelithiasis GERD Endometrial ablation Chronic back pain Hypothyroidism Plan: Admit to medical floor Other orders as indicated above Routine AM labs She is ambulatory so will hold off PT/OT DVT prophylaxis: Lovenox Home medications as ordered Code status: full code; PCP: Sydnee Waddell NP
[2018-10-07] MEDS ORDERED: Albuterol/Ipratropium 3.0-0.5 MG/3 ML Neb Soln NEB SCH (09:00)
[2018-10-07] MEDS ORDERED: Azithromycin 500 MG in Sodium Chloride 0.9% 250 ML IV SCH ×3 (09:00→18:00)
[2018-10-07] MEDS: Saccharomyces Boulardii (Probiotic) 250 MG Cap PO SCH (10:59)
[2018-10-07] MEDS: Enoxaparin 40 MG/0.4 ML Syringe SUBCUT SCH (11:00)
[2018-10-07] MEDS: Oseltamivir 75 MG Cap PO SCH ×2 (11:00→21:26)
[2018-10-07] MEDS ORDERED: Loperamide 2 MG Cap PO PRN (14:51)
[2018-10-07] MEDS: Albuterol/Ipratropium 3.0-0.5 MG/3 ML Neb Soln NEB SCH ×2 (15:42→20:57)
[2018-10-07] MEDS ORDERED: cefTRIAXone 1 GM in Sodium Chloride 0.9% 100 ML IV SCH (21:00)
[2018-10-08] MEDS: Dextrose 5%-Lact Ringers w/KCl 1,000 ML IV SCH (03:24)
[2018-10-08] MEDS: Albuterol/Ipratropium 3.0-0.5 MG/3 ML Neb Soln NEB SCH ×4 (05:43→21:08)
[2018-10-08] MEDS: Pantoprazole 40 MG Tab.CR PO SCH (06:07)
[2018-10-08] MEDS: Levothyroxine 50 MCG Tab PO SCH (06:07)
--- NOTE | 2018-10-08 06:40 | PCM.PN ---
- General Info Date of Service: 10/08/18 Admission Dx/Problem (Free Text): Admission Diagnosis/Problem Admission Diagnosis/Problem Pneumonia Subjective Update: In to see Drea. She is sitting on the couch and getting ready to shower. She has been using her IS and Acapella. She is improving. Hopeful for discharge in next 1-2 days. Functional Status: Reports: Pain Controlled, Tolerating Diet, Ambulating, Urinating, New Symptoms - Review of Systems General: Reports: Weakness (improving ), Fatigue, Malaise. Denies: Fever, Chills HEENT: Reports: No Symptoms. Denies: Headaches, Sore Throat Pulmonary: Reports: Shortness of Breath, Cough, Sputum, Wheezing. Denies: Pleuritic Chest Pain Cardiovascular: Reports: Dyspnea on Exertion. Denies: Chest Pain, Palpitations , Edema, Lightheadedness Gastrointestinal: Reports: No Symptoms. Denies: Abdominal Pain, Constipation, Diarrhea, Nausea, Vomiting Genitourinary: Reports: No Symptoms Musculoskeletal: Reports: No Symptoms Skin: Reports: No Symptoms. Denies: Cyanosis Neurological: Reports: No Symptoms. Denies: Confusion, Difficulty Walking, Gait Disturbance Psychiatric: Reports: No Symptoms - Patient Data Vitals - Most Recent: Last Vital Signs Temp 98.2 F 10/08/18 03:22 Pulse 72 10/08/18 03:22 Resp 18 10/08/18 03:22 BP 109/64 10/08/18 03:22 Pulse Ox 96 10/08/18 03:22 Weight - Most Recent: 214 lb 14.4 oz I&O - Last 24 Hours: Intake & Output 10/07/18 10/07/18 10/08/18 14:59 22:59 06:59 Intake Total 480 2309 2250 Output Total 1000 1600 Balance 480 1309 650 Lab Results Last 24 Hours: Laboratory Results - last 24 hr 10/06/18 10/06/18 10/07/18 Range/Units 20:00 22:00 05:25 WBC (3.98-10.04) K/mm3 RBC (3.98-5.22) M/mm3 Hgb (11.2-15.7) gm/L Hct (34.1-44.9) % MCV (79.4-94.8) fl MCH (25.6-32.2) pg MCHC (32.2-35.5) g/dl RDW Std Deviation (36.4-46.3) fL Plt Count (182-369) K/mm3 MPV (9.4-12.3) fl Neut % (Auto) (34.0-71.1) % Lymph % (Auto) (19.3-51.7) % [facility] % (Auto) (4.7-12.5) % Eos % (Auto) (0.7-5.8) Baso % (Auto) (0.1-1.2) % Neut # (Auto) (1.56-6.13) K/mm3 Lymph # (Auto) (1.18-3.74) K/mm3 [facility] # (Auto) (0.24-0.36) K/mm3 Eos # (Auto) (0.04-0.36) K/mm3 Baso # (Auto) (0.01-0.08) K/mm3 Neutrophils % (Manual) (40-60) % Band Neutrophils % (0-10) % Lymphocytes % (Manual) (20-40) % Atypical Lymphs % % Monocytes % (Manual) (2-10) % Eosinophils % (Manual) (0.7-5.8) % Basophils % (Manual) (0.1-1.2) Manual Slide Review Toxic Granulation Platelet Estimate Plt Morphology Comment RBC Morph Comment Sodium 138 (136-145) mEq/L Potassium 4.6 (3.5-5.1) mEq/L Chloride 103 (98-107) mEq/L Carbon Dioxide 28 (21-32) mEq/L Anion Gap 11.6 (5-15) BUN 12 (7-18) mg/dL Creatinine 0.7 (0.55-1.02) mg/dL Est Cr Clr Drug Dosing 73.36 mL/min Estimated GFR (MDRD) > 60 (>60) mL/min BUN/Creatinine Ratio 17.1 (14-18) Glucose 121 H (74-106) mg/dL Calcium 7.9 L (8.5-10.1) mg/dL Magnesium 2.0 (1.8-2.4) mg/dl C-Reactive Protein 6.2 H* (<1.0) mg/dL Procalcitonin <0.05 (<0.10) ng/mL Adenovirus (PCR) Not detected (Not Detected) B. pertussis DNA (PCR) Not detected (Not Detected) B.parapertussis DNA PCR Not detected (Not Detected) C. pneumoniae DNA (PCR) Not detected (Not Detected) C.difficile 027-NAP1-B1 C. difficile Tox (PCR) Coronavirus (PCR) Not detected (Not Detected) Human Metapneumovir PCR Not detected (Not Detected) Influenza A (RT-PCR) Not detected (Not Detected) Influenza B (RT-PCR) Not detected (Not Detected) M. pneumoniae (PCR) Not detected (Not Detected) Parainfluen 1,2,3,4 PCR Not detected (Not Detected) RSV (PCR) Not detected (Not Detected) Entero/Rhino (PCR) Not detected (Not Detected) 10/07/18 10/07/18 10/07/18 Range/Units 05:29 13:37 14:00 WBC 4.64 (3.98-10.04) K/mm3 RBC (3.98-5.22) M/mm3 Hgb (11.2-15.7) gm/L Hct (34.1-44.9) % MCV (79.4-94.8) fl MCH (25.6-32.2) pg MCHC (32.2-35.5) g/dl RDW Std Deviation (36.4-46.3) fL Plt Count (182-369) K/mm3 MPV (9.4-12.3) fl Neut % (Auto) (34.0-71.1) % Lymph % (Auto) (19.3-51.7) % [facility] % (Auto) (4.7-12.5) % Eos % (Auto) (0.7-5.8) Baso % (Auto) (0.1-1.2) % Neut # (Auto) (1.56-6.13) K/mm3 Lymph # (Auto) (1.18-3.74) K/mm3 [facility] # (Auto) (0.24-0.36) K/mm3 Eos # (Auto) (0.04-0.36) K/mm3 Baso # (Auto) (0.01-0.08) K/mm3 Neutrophils % (Manual) 65 H (40-60) % Band Neutrophils % 0 (0-10) % Lymphocytes % (Manual) 32 (20-40) % Atypical Lymphs % 0 % Monocytes % (Manual) 2 (2-10) % Eosinophils % (Manual) 1 (0.7-5.8) % Basophils % (Manual) 0 L (0.1-1.2) Manual Slide Review Normal smear Toxic Granulation 2+ moderate Platelet Estimate Adequate Plt Morphology Comment Normal RBC Morph Comment Normal Sodium (136-145) mEq/L Potassium (3.5-5.1) mEq/L Chloride (98-107) mEq/L Carbon Dioxide (21-32) mEq/L Anion Gap (5-15) BUN (7-18) mg/dL Creatinine (0.55-1.02) mg/dL Est Cr Clr Drug Dosing mL/min Estimated GFR (MDRD) (>60) mL/min BUN/Creatinine Ratio (14-18) Glucose (74-106) mg/dL Calcium (8.5-10.1) mg/dL Magnesium (1.8-2.4) mg/dl C-Reactive Protein (<1.0) mg/dL Procalcitonin (<0.10) ng/mL Adenovirus (PCR) (Not Detected) B. pertussis DNA (PCR) (Not Detected) B.parapertussis DNA PCR (Not Detected) C. pneumoniae DNA (PCR) (Not Detected) C.difficile 027-NAP1-B1 Presumptive negative C. difficile Tox (PCR) Negative Coronavirus (PCR) (Not Detected) Human Metapneumovir PCR (Not Detected) Influenza A (RT-PCR) (Not Detected) Influenza B (RT-PCR) (Not Detected) M. pneumoniae (PCR) (Not Detected) Parainfluen 1,2,3,4 PCR (Not Detected) RSV (PCR) (Not Detected) Entero/Rhino (PCR) (Not Detected) 10/08/18 Range/Units 05:37 WBC 4.87 (3.98-10.04) K/mm3 RBC 3.82 L (3.98-5.22) M/mm3 Hgb 10.9 L (11.2-15.7) gm/L Hct 34.4 (34.1-44.9) % MCV 90.1 (79.4-94.8) fl MCH 28.5 (25.6-32.2) pg MCHC 31.7 L (32.2-35.5) g/dl RDW Std Deviation 41.9 (36.4-46.3) fL Plt Count 200 (182-369) K/mm3 MPV 8.9 L (9.4-12.3) fl Neut % (Auto) 49.7 (34.0-71.1) % Lymph % (Auto) 40.7 (19.3-51.7) % [facility] % (Auto) 8.2 (4.7-12.5) % Eos % (Auto) 0.8 (0.7-5.8) Baso % (Auto) 0.6 (0.1-1.2) % Neut # (Auto) 2.42 (1.56-6.13) K/mm3 Lymph # (Auto) 1.98 (1.18-3.74) K/mm3 [facility] # (Auto) 0.40 H (0.24-0.36) K/mm3 Eos # (Auto) 0.04 (0.04-0.36) K/mm3 Baso # (Auto) 0.03 (0.01-0.08) K/mm3 Neutrophils % (Manual) (40-60) % Band Neutrophils % (0-10) % Lymphocytes % (Manual) (20-40) % Atypical Lymphs % % Monocytes % (Manual) (2-10) % Eosinophils % (Manual) (0.7-5.8) % Basophils % (Manual) (0.1-1.2) Manual Slide Review Toxic Granulation Platelet Estimate Plt Morphology Comment RBC Morph Comment Sodium (136-145) mEq/L Potassium (3.5-5.1) mEq/L Chloride (98-107) mEq/L Carbon Dioxide (21-32) mEq/L Anion Gap (5-15) BUN (7-18) mg/dL Creatinine (0.55-1.02) mg/dL Est Cr Clr Drug Dosing mL/min Estimated GFR (MDRD) (>60) mL/min BUN/Creatinine Ratio (14-18) Glucose (74-106) mg/dL Calcium (8.5-10.1) mg/dL Magnesium (1.8-2.4) mg/dl C-Reactive Protein (<1.0) mg/dL Procalcitonin (<0.10) ng/mL Adenovirus (PCR) (Not Detected) B. pertussis DNA (PCR) (Not Detected) B.parapertussis DNA PCR (Not Detected) C. pneumoniae DNA (PCR) (Not Detected) C.difficile 027-NAP1-B1 C. difficile Tox (PCR) Coronavirus (PCR) (Not Detected) Human Metapneumovir PCR (Not Detected) Influenza A (RT-PCR) (Not Detected) Influenza B (RT-PCR) (Not Detected) M. pneumoniae (PCR) (Not Detected) Parainfluen 1,2,3,4 PCR (Not Detected) RSV (PCR) (Not Detected) Entero/Rhino (PCR) (Not Detected) Nolan Results Last 24 Hours: Microbiology 10/06/18 21:54 Streptococcus pneumoniae Antigen (M - Final Urine 10/06/18 20:10 Aerobic Blood Culture - Preliminary Blood - Venous - Lab Draw NO GROWTH AFTER 1 DAY Anaerobic Blood Culture - Preliminary NO GROWTH AFTER 1 DAY 10/06/18 20:00 Aerobic Blood Culture - Preliminary Blood - Venous NO GROWTH AFTER 1 DAY Anaerobic Blood Culture - Preliminary NO GROWTH AFTER 1 DAY Med Orders - Current: Current Medications Acetaminophen (Tylenol) 650 mg PO Q4H PRN PRN Reason: Pain (Mild 1-3)/fever Al Hydroxide/Mg Hydroxide (Mag-Al Plus) 30 ml PO Q4H PRN PRN Reason: Heartburn Albuterol/Ipratropium (Duoneb 3.0-0.5 Mg/3 Ml) 3 ml NEB QIDRT [facility] Last Admin: 10/08/18 05:43 Dose: 3 ml Bisacodyl (Dulcolax) 5 mg PO DAILY PRN PRN Reason: Constipation Docusate Sodium (Colace) 100 mg PO BID PRN PRN Reason: Constipation Enoxaparin Sodium (Lovenox) 40 mg SUBCUT DAILY [facility] Last Admin: 10/07/18 11:00 Dose: 40 mg Guaifenesin/Phenylephrine HCl (Robitussin Dm) 10 ml PO TID@0700,1400,2100 PRN PRN Reason: Cough Hydralazine HCl (Apresoline) 20 mg IVPUSH Q4H PRN PRN Reason: Hypertension Hydromorphone HCl (Dilaudid) 0.5 mg IVPUSH Q2H PRN PRN Reason: Pain (severe 7-10) Potassium Cl/Dextrose/Lact Ringer's (D5 Lr With 20 Meq Kcl) 1,000 mls @ 150 mls /hr IV ASDIRECTED [facility] Last Admin: 10/08/18 03:24 Dose: 150 mls/hr Ceftriaxone Sodium 1 gm/ (Sodium Chloride) 100 mls @ 200 mls/hr IV Q24H [facility] Last Admin: 10/07/18 21:26 Dose: 200 mls/hr Azithromycin 500 mg/ Sodium (Chloride) 250 mls @ 250 mls/hr IV Q24H [facility] Last Admin: 10/07/18 18:31 Dose: 250 mls/hr Ketorolac Tromethamine (Toradol) 30 mg IV Q6H PRN PRN Reason: Pain (moderate 4-6) Levothyroxine Sodium (Synthroid) 50 mcg PO ACBRK [facility] Last Admin: 10/08/18 06:07 Dose: 50 mcg Loperamide HCl (Imodium) 4 mg PO BID PRN PRN Reason: Diarrhea Last Admin: 10/07/18 15:21 Dose: 4 mg Lorazepam (Ativan) 0.5 mg IV Q6H PRN PRN Reason: Anxiety Magnesium Sulfate (Pharmacy To Dose - Magnesium Replacement) 0 dose .XX ASDIRECTED PRN PRN Reason: RX TO WATCH MAG LEVELS Metoprolol Tartrate (Lopressor) 5 mg IVPUSH Q4H PRN PRN Reason: Tachycardia Ondansetron HCl (Zofran) 4 mg IV Q6H PRN PRN Reason: Nausea/Vomiting Oseltamivir Phosphate (Tamiflu) 75 mg PO BID [facility] Last Admin: 10/07/18 21:26 Dose: 75 mg Pantoprazole Sodium (Protonix) 40 mg PO DAILY@0700 [facility] Last Admin: 10/08/18 06:07 Dose: 40 mg Polyethylene Glycol (Miralax) 17 gm PO DAILY PRN PRN Reason: Constipation Potassium Chloride (Pharmacy To Dose - Potassium Replacement) 0 dose .XX ASDIRECTED PRN PRN Reason: RX TO WATCH K LEVELS Saccharomyces Boulardii (Florastor) 250 mg PO DAILY [facility] Last Admin: 10/07/18 10:59 Dose: 250 mg Senna/Docusate Sodium (Senna Plus) 1 tab PO BID PRN PRN Reason: Constipation Temazepam (Restoril) 15 mg PO BEDTIME PRN PRN Reason: Sleep Discontinued Medications Albuterol (Proventil Neb Soln) 1.25 mg NEB Q6H [facility] Last Admin: 10/07/18 08:45 Dose: 1.25 mg Albuterol (Proventil Neb Soln) 1.25 mg NEB Q6H [facility] Last Admin: 10/07/18 02:26 Dose: 1.25 mg Albuterol/Ipratropium (Duoneb 3.0-0.5 Mg/3 Ml) 3 ml NEB Q4H PRN PRN Reason: Shortness Of Breath/wheezing Albuterol/Ipratropium (Duoneb 3.0-0.5 Mg/3 Ml) 3 ml NEB QID CARO Azithromycin (Zithromax) 500 mg PO ONETIME ONE Stop: 10/06/18 17:56 Last Admin: 10/06/18 18:24 Dose: 500 mg Sodium Chloride (Normal Saline) 1,000 mls @ 999 mls/hr IV ONETIME ONE Stop: 10/06/18 15:54 Last Admin: 10/06/18 15:15 Dose: 999 mls/hr Sodium Chloride (Normal Saline) 100 mls @ 60 mls/hr IV ASDIRECTED [facility] Last Admin: 10/06/18 16:23 Dose: 60 mls/hr Azithromycin 500 mg/ Sodium (Chloride) 250 mls @ 250 mls/hr IV Q24H [facility] Last Admin: 10/07/18 19:05 Dose: Not Given Ceftriaxone Sodium 1 gm/ (Sodium Chloride) 100 mls @ 200 mls/hr IV ONETIME ONE Stop: 10/06/18 19:34 Last Admin: 10/06/18 21:37 Dose: 200 mls/hr Azithromycin 500 mg/ Sodium (Chloride) 250 mls @ 250 mls/hr IV Q24H [facility] Influenza Virus Vaccine (Fluzone Quad [id number] Syringe) 60 mcg IM .ONCE ONE Stop: 10/07/18 10:01 Iopamidol (Isovue-370 (76%)) 100 ml IVPUSH ONETIME ONE Stop: 10/06/18 16:14 Last Admin: 10/06/18 16:22 Dose: 100 ml Oseltamivir Phosphate (Tamiflu) 30 mg PO BID [facility] Last Admin: 10/06/18 21:37 Dose: 30 mg Potassium Chloride (Klor-Con M20) 40 meq PO NOW STA Stop: 10/06/18 19:48 Last Admin: 10/06/18 21:37 Dose: 40 meq Potassium Chloride (Klor-Con M20) 40 meq PO Q4H CARO Stop: 10/07/18 04:01 Last Admin: 10/07/18 03:47 Dose: 40 meq Sodium Chloride (Saline Flush) 10 ml FLUSH ONETIME ONE Stop: 10/06/18 16:14 Last Admin: 10/06/18 16:23 Dose: 10 ml - Exam Quality Assessment: Supplemental Oxygen, DVT Prophylaxis General: Alert, Oriented, Cooperative HEENT: Pupils Equal, Pupils Reactive, EOMI, Mucous Membr. Moist/[place] Neck: Supple, Trachea Midline, No JVD Lungs: Normal Respiratory Effort, Decreased Breath Sounds Cardiovascular: Regular Rate, Regular Rhythm GI/Abdominal Exam: Normal Bowel Sounds, Soft, Non-Tender, No Distention, No Abnormal Bruit (Female) Exam: Deferred Back Exam: Normal Inspection, Full Range of Motion Extremities: Normal Inspection, Normal Range of Motion, Non-Tender, No Pedal Edema, Normal Capillary Refill Peripheral Pulses: 2+: Radial (L), Radial (R), Dorsalis Pedis (L), Dorsalis Pedis (R) Skin: Warm, Dry, Intact Neurological: No New Focal Deficit Psy/Mental Status: Alert, Normal Affect, Normal Mood - Problem List & Annotations (1) Hypokalemia SNOMED Code(s): 11273868 Code(s): E87.6 - HYPOKALEMIA Status: Acute Priority: High Current Visit : Yes (2) Hypoxia SNOMED Code(s): 218653283 Code(s): R09.02 - HYPOXEMIA Status: Acute Priority: High Current Visit : Yes (3) Influenza A SNOMED Code(s): 318732993 Code(s): J10.1 - FLU DUE TO OTH IDENT INFLUENZA VIRUS W OTH RESP MANIFEST Status: Resolved Priority: High Current Visit: Yes (4) Pneumonia SNOMED Code(s): 674794400 Code(s): J18.9 - PNEUMONIA, UNSPECIFIED ORGANISM Status: Acute Priority: High Current Visit: Yes Qualifiers: Pneumonia type: due to unspecified organism Laterality: bilateral Lung location: lower lobe of lung Qualified Code(s): J18.1 - Lobar pneumonia, unspecified organism (5) Pre-diabetes SNOMED Code(s): 165125853 Code(s): R73.03 - PREDIABETES Status: Acute Priority: Medium Current Visit: Yes (6) Hypomagnesemia SNOMED Code(s): 275512934 Code(s): E83.42 - HYPOMAGNESEMIA Status: Acute Priority: High Current Visit: Yes - Problem List Review Problem List Initiated/Reviewed/Updated: Yes - My Orders Last 24 Hours: My Active Orders 10/07/18 06:53 Consult to Diabetic Nurse Specialist [CONS] Routine 10/07/18 07:00 Pharmacy to Dose - Magnesium R [Pharmacy to Dose - Magnesium Replacement] 0 dose .XX ASDIRECTED PRN 10/07/18 09:33 Isolation [COMM] Routine 10/07/18 09:41 Isolation [COMM] Routine 10/07/18 16:00 Albuterol/Ipratropium [DuoNeb 3.0-0.5 MG/3 ML] 3 ml NEB QIDRT - Plan Plan:: I/P: Acute CAP -Reports dyspena, cough, hypoxia -Has been taking albuterol inhaler and eventually albuterol nebulizers with minimal help -O2 in clinic was 86% -No chronic respiratory history -CXR in ED: Findings suspicious for mild CHF -CTA in ED: * 1. Cardiomegaly. Fatty infiltration within the liver. * 2. No findings of pulmonary embolism. * 3. Patchy increased density within both lungs with differential including pulmonary edema from CHF versus multifocal pneumonia. -Denies any cardiac history, edema, orthopnea -Robitussin TID scheduled PRN -Scheduled QID Duonebs -Rocephin 1gm Daily -Azithromycin 250mg daily -RT/Acapell/IS -VRP negative -Sputum culture ordered -Mycoplasma negative -Strep Pneumo pending -Blood cultures pending -No leukocytosis -CRP 12.1-->6.2-->2.4 -O2 as needed Hypoxia -Oxygen saturations of 86% in clinic -Required 2L in ED with difficulty maintaining saturations above 90% -2/2 above -Treat underlying cause -O2 as needed - attempt to wean "Pre-Diabetic" -A1C of 6.2 -environmental educator consult for lifestyle changes -Continued monitoring by PCP Hypomagnesemia -Magnesium 1.7 -Supplemented Resolved: Influenza A -Diagnosed with influenza B in June -Diagnosed with influenza A on 10/01/18 -Continue home tamiflu - She completed treatment - discontinue -Supportive care -VRP negative Hypokalemia -Potassium 3.0 in ED-->4.6 -09/18 inadequate intake, poor appetite -Supplemented Chronic: Impaired vision Recurrent bronchitis Cholelithiasis GERD Endometrial ablation Chronic back pain Hypothyroidism Plan: Admit to medical floor Other orders as indicated above Routine AM labs She is ambulatory so will hold off PT/OT DVT prophylaxis: Lovenox Home medications as ordered Code status: full code; PCP: Sydnee Waddell NP
[2018-10-08] MEDS: Saccharomyces Boulardii (Probiotic) 250 MG Cap PO SCH (09:43)
[2018-10-08] MEDS: Enoxaparin 40 MG/0.4 ML Syringe SUBCUT SCH (09:44)
[2018-10-08] MEDS: Oseltamivir 75 MG Cap PO SCH (09:44)
[2018-10-08] MEDS ORDERED: Magnesium Oxide 400 MG Tab PO ONE (10:00)
[2018-10-08] MEDS ORDERED: Azithromycin 250 MG Tab PO SCH (18:00)
[2018-10-08] MEDS: Cephalexin 500 MG Cap PO SCH (20:20)
[2018-10-09] MEDS: Cephalexin 500 MG Cap PO SCH (04:48)
[2018-10-09] MEDS: Levothyroxine 50 MCG Tab PO SCH (05:27)
[2018-10-09] MEDS: Pantoprazole 40 MG Tab.CR PO SCH (06:12)
[2018-10-09] MEDS: Albuterol/Ipratropium 3.0-0.5 MG/3 ML Neb Soln NEB SCH ×2 (06:32→09:11)
[2018-10-09] MEDS: Saccharomyces Boulardii (Probiotic) 250 MG Cap PO SCH (08:18)
[2018-10-09] MEDS: Enoxaparin 40 MG/0.4 ML Syringe SUBCUT SCH (08:19)
[2018-10-09 08:24] VITALS: BP 111/47
--- NOTE | 2018-10-09 10:47 | CR ---
Chest: Portable view of the chest was obtained. Comparison: Prior chest x-ray of 10/06/[address] of 10/06/18. Heart size is slightly enlarged. Pulmonary vessels remain slightly congested but findings are felt to be mildly improved from previous exam. Previous right shoulder surgery is noted. Minimal scoliosis is noted within the spine. Surgical clips seen within the upper abdomen. Impression: 1. Mild CHF is again noted. Findings are slightly improved from previous exam. Diagnostic code #2
--- NOTE | 2018-10-09 10:50 | PCM.DCSUM1 ---
Discharge Summary - Hospital Course Free Text/Narrative:: Patient was primarily admitted for medical management of community acquired pneumonia. She was at the time taking Tamiflu for influenza infection. All her basic infectious work up to include sputum culture, viral panel, mycoplasma and strep pneumoniae antigen were all negative. Her initial chest x-ray showed no obvious infiltrate but her chest CT scan revealed patchy increased density within both lungs which in setting of her clinical presentation meets the criteria of pneumonia. However she received intravenous antibiotics, supplemental O2, routine decongestant/expectorant as well as pulmonary toilet and she gradually improve on this regimen. Her repeat chest x-ray showed mildly improvement but overall she looked way better then when she first came in. Her hospital course was uncomplicated and once stable she was then immediately discharge to home with additional course of oral antibiotics plus probiotics to take. She was advised to discontinue her home dose Tamiflu, follow discharge instructions, and see her family doctor in 1 week. She was further advised to come back or seek immediate care should her symptoms persist or get worse. The patient expressed understanding and in agreement with the plans as discussed above. All questions were answered. HPI Initial Comments: Soco Landaverde is a 48 yo female who presented to our ED on 10/06/18 after being seen by her PCP for celiac, coughinfluenza B in June reports her cough never fully went away after this. Over the last week she started to feel run down again and was diagnosed on 10/01/18 with influenza. She was then started on Tamiflu. She started on albuterol inhaler but did not have any improvement so she was switched and nebulizers. She's been doing albuterol treatments for 3 hours and still feels short of breath. She returned to her PCP office and saturations were found to be 86%. She was placed on 2 L of oxygen and sats remained below 90. Reports shortness of breath and nonproductive cough. She has no history of any airway disease, asthma, or COPD. She was never a smoker. In the ED temperature 90.8F. Pulse 79. Respirations 20. Blood pressure 132/ 73. Pulse ox is very low at 73%. Labs are obtained: CBC is 5.17. Hemoglobin 12.3. Hematocrit 30.0. She's normocytic. Pulse are low at 173,000. Neutrophils are elevated at 83%. Band neutrophils are 1%. Her is high at 1.98. Sodium low at 135. Potassium low at 3.0. Chloride low at 96. Prophylaxis 30. Anion gap is 12. BUN is 17. Creatinine 0.9. GFR is greater than 60. Glucose was 7. Calcium 8.5. Total bilirubin 0.3. AST 52, ALT 45, alkaline phosphatase 68. Troponin is less than 0.017. CRP is high at 12.1. It protein 7.8. Albumin is 3.0. She started on D5 LR with 20 minute once potassium and 150 mils an hour. She is also given azithromycin. Chest x-ray shows a slightly enlarged heart and mildly congested pulmonary vessels. Findings suspicious for CHF. CT of the chest obtained and interpreted by Dr. Orr as "1. Cardiomegaly. Fatty infiltration within the liver. 2. No findings of pulmonary embolism. 3. Patchy increased density within both lungs with differential including pulmonary edema from CHF versus multifocal pneumonia. She is placed on 3 L of oxygen and maintain sats in the 92-94 range , however when she was taken off oxygen and attempted to walk to the restroom her saturations dropped to the mid 70s. She carries a history of: Recurrent bronchitis, influenza, cholestasis, GERD, endometrial ablation, chronic back pain, hypothyroidism. She was never a smoker. Her PCP is Aurora Waddell NP. She is a full code. Diagnosis: Stroke: No - Discharge Data Discharge Date: 10/09/18 Discharge Disposition: Home, Self-Care 01 Condition: Good - Discharge Diagnosis/Problem(s) (1) Pneumonia SNOMED Code(s): 056673423 ICD Code: J18.9 - PNEUMONIA, UNSPECIFIED ORGANISM Status: Acute Priority : High Qualifiers: Pneumonia type: due to unspecified organism Laterality: bilateral Lung location: lower lobe of lung Qualified Code(s): J18.1 - Lobar pneumonia, unspecified organism (2) Influenza A SNOMED Code(s): 782071359 ICD Code: J10.1 - FLU DUE TO OTH IDENT INFLUENZA VIRUS W OTH RESP MANIFEST Status: Acute Priority: High (3) Obesity (BMI 30-39.9) SNOMED Code(s): 474382427, 643472066 ICD Code: E66.9 - OBESITY, UNSPECIFIED Status: Chronic (4) Hypokalemia SNOMED Code(s): 20413076 ICD Code: E87.6 - HYPOKALEMIA Status: Resolved Priority: High (5) Hypomagnesemia SNOMED Code(s): 849897693 ICD Code: E83.42 - HYPOMAGNESEMIA Status: Resolved Priority: High (6) Hypoxia SNOMED Code(s): 487378555 ICD Code: R09.02 - HYPOXEMIA Status: Resolved Priority: High (7) Pre-diabetes SNOMED Code(s): 123344100 ICD Code: R73.03 - PREDIABETES Status: Chronic Priority: Medium - Patient Summary/Data Operative Procedure(s) Performed: None Complications: None Consults: Consultations 10/06/18 18:59 Respiratory Care Assess and Treatment [CONS] Routine 10/06/18 19:11 Consult to Dietary [Consult to Farm Management Professor] [CONS] Routine 10/07/18 06:53 Consult to Diabetic Nurse Specialist [CONS] Routine Labs Pending at D/C: None Recommended Follow-up Testing/Procedures: Repeat imaging study Planned Operative Procedure(s) after DC: None - Patient Instructions Diet: Heart Healthy Diet, Usual Diet as Tolerated, Weight Loss Diet Activity: As Tolerated Driving: May Drive Today Showering/Bathing: May Shower Notify Provider of: Fever, Increased Pain, Swelling and Redness, Nausea and/or Vomiting Other/Special Instructions: - Please take all new medications as directed. - Resume all home medications and routine home activities as tolerated. - Recommend to use Incentive Spirometry and Flutter Valvel as directed until you complpete your antibiotic treatment. - May use [id number] decongestant/ expectorant such as Robitussin-DM for your cough or congestion. - Call or follow up with your PCP for any questions or concerns after discharge. - Follow up with your PCP in 1 week with repeat imaging study. - Come back or seek immediate care should your symptoms persist or get worse - Discharge Plan *PRESCRIPTION DRUG MONITORING PROGRAM REVIEWED*: Not Applicable *COPY OF PRESCRIPTION DRUG MONITORING REPORT IN PATIENT LOREN: Not Applicable Prescriptions/Med Rec: Azithromycin [Zithromax] 250 mg PO Q24H #4 tablet cephALEXin [Keflex] 500 mg PO BID #9 cap Saccharomyces Boulardii [Florastor] 250 mg PO BID #10 cap Home Medications: Home Meds Levothyroxine [Synthroid] 50 mcg PO ACBRK 08/12/14 [History] Omeprazole [Prilosec] 20 mg PO DAILY 08/12/14 [History] Albuterol [Proventil Neb Soln] 1.25 mg NEB Q6H 10/06/18 [History] Azithromycin [Zithromax] 250 mg PO Q24H #4 tablet 10/09/18 [Rx] Saccharomyces Boulardii [Florastor] 250 mg PO BID #10 cap 10/09/18 [Rx] cephALEXin [Keflex] 500 mg PO BID #9 cap 10/09/18 [Rx] Patient Handouts: Prediabetes, Influenza, Adult, [id number], Hypoxemia, Hypomagnesemia, Hypokalemia, Preventing Influenza, Adult, Influenza Virus Vaccine injection, Obesity, Adult, Jemw-as-Whti, Community-Acquired Pneumonia, Adult, [id number] Referrals: Sydnee Waddell ELECTRO MECHANICAL SOLAR TECHNICIAN [Primary Care Provider] - - Discharge Summary/Plan Comment DC Time >30 min.: No Discharge Summary/Plan Comment: Discharge to Home - General Info Date of Service: 10/09/18 Admission Dx/Problem (Free Text: Admission Diagnosis/Problem Admission Diagnosis/Problem Pneumonia Subjective Update: In to see Drea. She is sitting on the couch and getting ready to shower. She has been using her IS and Acapella. She is improving. Hopeful for discharge in next 1-2 days. Functional Status: Reports: Pain Controlled, Tolerating Diet, Ambulating, Urinating. Denies: New Symptoms - Review of Systems General: Denies: Fever, Weakness, Fatigue, Malaise, Chills HEENT: Reports: No Symptoms Pulmonary: Reports: Cough (tiny), Sputum (a little). Denies: Shortness of Breath Cardiovascular: Denies: Chest Pain, Dyspnea on Exertion, Lightheadedness Gastrointestinal: Denies: Abdominal Pain, Decreased Appetite, Nausea, Vomiting Genitourinary: Reports: No Symptoms Musculoskeletal: Reports: No Symptoms Skin: Denies: Mottled, Pallor, Diaphoresis, Bruising, Pruritis Neurological: Denies: Confusion, Difficulty Walking, Weakness, Gait Disturbance Psychiatric: Denies: Depression, Anxiety, Agitation, Hallucinations Systems Review Comment: No overnight or acute issues. She rested well last night. She feels good and eager to go home this morning. Her morning labs have improve from yesterday. Her chest x-ray shows stable from previous imaging study. - Patient Data Vitals - Most Recent: Last Vital Signs Temp 36.8 C 10/09/18 08:16 Pulse 88 10/09/18 08:16 Resp 18 10/09/18 08:16 BP 111/47 L 10/09/18 08:16 Pulse Ox 94 L 10/09/18 09:11 Weight - Most Recent: 94.665 kg I&O - Last 24 hours: Intake & Output 10/08/18 10/09/18 10/09/18 22:59 06:59 14:59 Intake Total 1060 350 240 Output Total 2100 Balance -1040 350 240 Lab Results - Last 24 hrs: Laboratory Results - last 24 hr 10/08/18 10/09/18 10/09/18 Range/Units 10:20 05:40 05:40 WBC 5.54 (3.98-10.04) K/mm3 RBC 4.01 (3.98-5.22) M/mm3 Hgb 11.1 L (11.2-15.7) gm/L Hct 35.5 (34.1-44.9) % MCV 88.5 (79.4-94.8) fl MCH 27.7 (25.6-32.2) pg MCHC 31.3 L (32.2-35.5) g/dl RDW Std Deviation 40.6 (36.4-46.3) fL Plt Count 247 (182-369) K/mm3 MPV 8.6 L (9.4-12.3) fl Neut % (Auto) 55.0 (34.0-71.1) % Lymph % (Auto) 32.3 (19.3-51.7) % Nuckolls % (Auto) 11.4 (4.7-12.5) % Eos % (Auto) 0.7 (0.7-5.8) Baso % (Auto) 0.4 (0.1-1.2) % Neut # (Auto) 3.05 (1.56-6.13) K/mm3 Lymph # (Auto) 1.79 (1.18-3.74) K/mm3 Nuckolls # (Auto) 0.63 H (0.24-0.36) K/mm3 Eos # (Auto) 0.04 (0.04-0.36) K/mm3 Baso # (Auto) 0.02 (0.01-0.08) K/mm3 Manual Slide Review Normal smear Sodium 135 L (136-145) mEq/L Potassium 3.9 (3.5-5.1) mEq/L Chloride 99 (98-107) mEq/L Carbon Dioxide 29 (21-32) mEq/L Anion Gap 10.9 (5-15) BUN 8 (7-18) mg/dL Creatinine 0.7 (0.55-1.02) mg/dL Est Cr Clr Drug Dosing 73.44 mL/min Estimated GFR (MDRD) > 60 (>60) mL/min BUN/Creatinine Ratio 11.4 L (14-18) Glucose 98 (74-106) mg/dL Calcium 8.7 (8.5-10.1) mg/dL Magnesium 1.9 (1.8-2.4) mg/dl C-Reactive Protein 2.9 H* (<1.0) mg/dL NT-Pro-B Natriuret Pep 155 H (0-125) pg/mL LISSY Results - Last 24 hrs: Microbiology 10/06/18 20:10 Aerobic Blood Culture - Preliminary Blood - Venous - Lab Draw NO GROWTH AFTER 2 DAYS Anaerobic Blood Culture - Preliminary NO GROWTH AFTER 2 DAYS 10/06/18 20:00 Aerobic Blood Culture - Preliminary Blood - Venous NO GROWTH AFTER 2 DAYS Anaerobic Blood Culture - Preliminary NO GROWTH AFTER 2 DAYS Med Orders - Current: Current Medications Acetaminophen (Tylenol) 650 mg PO Q4H PRN PRN Reason: Pain (Mild 1-3)/fever Al Hydroxide/Mg Hydroxide (Mag-Al Plus) 30 ml PO Q4H PRN PRN Reason: Heartburn Albuterol/Ipratropium (Duoneb 3.0-0.5 Mg/3 Ml) 3 ml NEB QIDRT [facility] Last Admin: 10/09/18 09:11 Dose: 3 ml Azithromycin (Zithromax) 500 mg PO Q24H [facility] Last Admin: 10/08/18 18:41 Dose: 500 mg Bisacodyl (Dulcolax) 5 mg PO DAILY PRN PRN Reason: Constipation Cephalexin (Keflex) 500 mg PO Q8H [facility] Last Admin: 10/09/18 04:48 Dose: 500 mg Docusate Sodium (Colace) 100 mg PO BID PRN PRN Reason: Constipation Enoxaparin Sodium (Lovenox) 40 mg SUBCUT DAILY [facility] Last Admin: 10/09/18 08:19 Dose: 40 mg Guaifenesin/Phenylephrine HCl (Robitussin Dm) 10 ml PO TID@0700,1400,2100 PRN PRN Reason: Cough Hydralazine HCl (Apresoline) 20 mg IVPUSH Q4H PRN PRN Reason: Hypertension Hydromorphone HCl (Dilaudid) 0.5 mg IVPUSH Q2H PRN PRN Reason: Pain (severe 7-10) Ketorolac Tromethamine (Toradol) 30 mg IV Q6H PRN PRN Reason: Pain (moderate 4-6) Levothyroxine Sodium (Synthroid) 50 mcg PO ACBRK [facility] Last Admin: 10/09/18 05:27 Dose: 50 mcg Loperamide HCl (Imodium) 4 mg PO BID PRN PRN Reason: Diarrhea Last Admin: 10/07/18 15:21 Dose: 4 mg Lorazepam (Ativan) 0.5 mg IV Q6H PRN PRN Reason: Anxiety Magnesium Sulfate (Pharmacy To Dose - Magnesium Replacement) 0 dose .XX ASDIRECTED PRN PRN Reason: RX TO WATCH MAG LEVELS Metoprolol Tartrate (Lopressor) 5 mg IVPUSH Q4H PRN PRN Reason: Tachycardia Ondansetron HCl (Zofran) 4 mg IV Q6H PRN PRN Reason: Nausea/Vomiting Pantoprazole Sodium (Protonix) 40 mg PO DAILY@0700 [facility] Last Admin: 10/09/18 06:12 Dose: 40 mg Polyethylene Glycol (Miralax) 17 gm PO DAILY PRN PRN Reason: Constipation Potassium Chloride (Pharmacy To Dose - Potassium Replacement) 0 dose .XX ASDIRECTED PRN PRN Reason: RX TO WATCH K LEVELS Saccharomyces Boulardii (Florastor) 250 mg PO DAILY [facility] Last Admin: 10/09/18 08:18 Dose: 250 mg Senna/Docusate Sodium (Senna Plus) 1 tab PO BID PRN PRN Reason: Constipation Temazepam (Restoril) 15 mg PO BEDTIME PRN PRN Reason: Sleep Discontinued Medications Albuterol (Proventil Neb Soln) 1.25 mg NEB Q6H [facility] Last Admin: 10/07/18 08:45 Dose: 1.25 mg Albuterol (Proventil Neb Soln) 1.25 mg NEB Q6H [facility] Last Admin: 10/07/18 02:26 Dose: 1.25 mg Albuterol/Ipratropium (Duoneb 3.0-0.5 Mg/3 Ml) 3 ml NEB Q4H PRN PRN Reason: Shortness Of Breath/wheezing Albuterol/Ipratropium (Duoneb 3.0-0.5 Mg/3 Ml) 3 ml NEB QID [facility] Azithromycin (Zithromax) 500 mg PO ONETIME ONE Stop: 10/06/18 17:56 Last Admin: 10/06/18 18:24 Dose: 500 mg Sodium Chloride (Normal Saline) 1,000 mls @ 999 mls/hr IV ONETIME ONE Stop: 10/06/18 15:54 Last Admin: 10/06/18 15:15 Dose: 999 mls/hr Sodium Chloride (Normal Saline) 100 mls @ 60 mls/hr IV ASDIRECTED [facility] Last Admin: 10/06/18 16:23 Dose: 60 mls/hr Potassium Cl/Dextrose/Lact Ringer's (D5 Lr With 20 Meq Kcl) 1,000 mls @ 150 mls /hr IV ASDIRECTED [facility] Last Admin: 10/08/18 03:24 Dose: 150 mls/hr Azithromycin 500 mg/ Sodium (Chloride) 250 mls @ 250 mls/hr IV Q24H [facility] Last Admin: 10/07/18 19:05 Dose: Not Given Ceftriaxone Sodium 1 gm/ (Sodium Chloride) 100 mls @ 200 mls/hr IV Q24H [facility] Last Admin: 10/07/18 21:26 Dose: 200 mls/hr Ceftriaxone Sodium 1 gm/ (Sodium Chloride) 100 mls @ 200 mls/hr IV ONETIME ONE Stop: 10/06/18 19:34 Last Admin: 10/06/18 21:37 Dose: 200 mls/hr Azithromycin 500 mg/ Sodium (Chloride) 250 mls @ 250 mls/hr IV Q24H [facility] Azithromycin 500 mg/ Sodium (Chloride) 250 mls @ 250 mls/hr IV Q24H [facility] Last Admin: 10/07/18 18:31 Dose: 250 mls/hr Influenza Virus Vaccine (Fluzone Quad [id number] Syringe) 60 mcg IM .ONCE ONE Stop: 10/07/18 10:01 Influenza Virus Vaccine (Fluzone Quad Syringe) 60 mcg IM .ONCE ONE Stop: 10/09/18 10:01 Iopamidol (Isovue-370 (76%)) 100 ml IVPUSH ONETIME ONE Stop: 10/06/18 16:14 Last Admin: 10/06/18 16:22 Dose: 100 ml Magnesium Oxide (Magnesium Oxide) 800 mg PO ONETIME ONE Stop: 10/08/18 10:01 Last Admin: 10/08/18 09:45 Dose: 800 mg Oseltamivir Phosphate (Tamiflu) 30 mg PO BID [facility] Last Admin: 10/06/18 21:37 Dose: 30 mg Oseltamivir Phosphate (Tamiflu) 75 mg PO BID [facility] Last Admin: 10/08/18 09:44 Dose: 75 mg Potassium Chloride (Klor-Con M20) 40 meq PO NOW STA Stop: 10/06/18 19:48 Last Admin: 10/06/18 21:37 Dose: 40 meq Potassium Chloride (Klor-Con M20) 40 meq PO Q4H [facility] Stop: 10/07/18 04:01 Last Admin: 10/07/18 03:47 Dose: 40 meq Sodium Chloride (Saline Flush) 10 ml FLUSH ONETIME ONE Stop: 10/06/18 16:14 Last Admin: 10/06/18 16:23 Dose: 10 ml - Exam General: Reports: Alert, Oriented, Cooperative, No Acute Distress, Other (Obese) HEENT: Reports: Pupils Equal, Pupils Reactive, EOMI, Mucous Membr. Moist/[place] Neck: Reports: Supple Lungs: Reports: Clear to Auscultation, Normal Respiratory Effort Cardiovascular: Reports: Regular Rate, Regular Rhythm GI/Abdominal Exam: Normal Bowel Sounds, Soft, Non-Tender, No Organomegaly, No Distention, No Abnormal Bruit, Other (Obese) (Female) Exam: Deferred Rectal (Female) Exam: Deferred Back Exam: Reports: Normal Inspection, Decreased Range of Motion Extremities: Normal Inspection, Normal Range of Motion, Non-Tender, No Pedal Edema, Normal Capillary Refill Skin: Reports: Warm, Dry, Intact Neurological: Reports: No New Focal Deficit, Normal Gait Psy/Mental Status: Reports: Alert, Normal Affect, Normal Mood
== END 2018-10-09 12:24 | disposition home or self-care (01) | DRG 195 ==
LOC: JD.ED 14:02 → JD.MS 19:22
PROVIDERS: ADMIT Internal Medicine; ATTEND Internal Medicine
DX: J10.00 Influenza due to other identified influenza virus with unspecified type of pneumonia (principal); K21.9 Gastro-esophageal reflux disease without esophagitis; G89.29 Other chronic pain; E03.9 Hypothyroidism, unspecified; E66.9 Obesity, unspecified; E87.6 Hypokalemia; E83.42 Hypomagnesemia; R09.02 Hypoxemia; R73.03 Prediabetes; G47.30 Sleep apnea, unspecified; Z79.899 Other long term (current) drug therapy; Z90.49 Acquired absence of other specified parts of digestive tract
CPT/HCPCS: 36415; 71045; 71045-26; 71046; 71046-26; 71275; 71275-26; 80048; 80053; 83036; 83735; 83880; 84145; 84484; 84703; 85007; 85025; 85027; 85048; 85379; 86140; 86738; 87040; 87486; 87493; 87581; 87632; 87798; 87899; 94640; 94667; 94668; 94760; 94761; 96360; 96361; 99284; 99285-25; A9270-GY; J0456; J0696; J1650; J3480; J7030; J7040; J7050; J7620-GY; Q9967

== ENCOUNTER 2022-10-02 22:59 | Emergency (ER) | payer OTHER ==
[2022-10-02 23:13] VITALS: BP 161/88; PULSE 77
[2022-10-02] MEDS ORDERED: predniSONE 20 MG Tab PO ONE (23:33)
[2022-10-02] MEDS ORDERED: Famotidine 20 MG Tab PO ONE (23:34)
== END 2022-10-03 00:14 | disposition home or self-care (01) ==
LOC: JD.ED 22:59
DX: T78.3XXA Angioneurotic edema, initial encounter (principal); K21.9 Gastro-esophageal reflux disease without esophagitis; Z79.899 Other long term (current) drug therapy; Z86.16 Personal history of COVID-19
CPT/HCPCS: 99283; A9270-GY; J7512

== ENCOUNTER 2022-11-23 23:15 | Emergency (ER) | payer OTHER ==
[2022-11-24] MEDS ORDERED: Famotidine 20 MG Tab PO ONE (00:58)
[2022-11-24 03:12] VITALS: BP 148/89; PULSE 88
== END 2022-11-24 03:11 | disposition home or self-care (01) ==
LOC: JD.ED 23:15
DX: R51.9 Headache, unspecified (principal); K21.9 Gastro-esophageal reflux disease without esophagitis; E03.9 Hypothyroidism, unspecified; T45.0X5A Adverse effect of antiallergic and antiemetic drugs, initial encounter; Z79.899 Other long term (current) drug therapy; Z90.49 Acquired absence of other specified parts of digestive tract
CPT/HCPCS: 99283; A9270

== ENCOUNTER 2023-03-10 18:13 | Emergency (ER) | payer OTHER ==
[2023-03-10 18:59] LABS: BASOPHILS ABSOLUTE AUTO 0.01 K/mm3 (0.01-0.08); BASOPHILS PERCENT AUTO 0.1 % (0.1-1.2); EOSINOPHILS ABSOLUTE AUTO 0.12 K/mm3 (0.04-0.36); EOSINOPHILS PERCENT AUTO 1.3 (0.7-5.8); HEMATOCRIT 38.7 % (34.1-44.9); HEMOGLOBIN 12.5 gm/dl (11.2-15.7); IMMATURE GRAN ABSOLUTE AUTO 0.01 K/mm3 (0.00-0.10); IMMATURE GRAN PERCENT AUTO 0.1 % (<=1.0); LYMPHOCYTES ABSOLUTE AUTO 2.53 K/mm3 (1.18-3.74); LYMPHOCYTES PERCENT AUTO 26.9 % (19.3-51.7); MEAN CORPUSCULAR HEMOGLOBIN 29.1 pg (25.6-32.2); MEAN CORPUSCULAR HGB CONC 32.3 g/dl (32.2-35.5); MEAN CORPUSCULAR VOLUME 90.2 fl (79.4-94.8); MEAN PLATELET VOLUME 8.9 fl (9.4-12.3); MONOCYTES ABSOLUTE AUTO 0.74 K/mm3 (0.24-0.36); MONOCYTES PERCENT AUTO 7.9 % (4.7-12.5); NEUTROPHILS ABSOLUTE AUTO 6.01 K/mm3 (1.56-6.13); NEUTROPHILS PERCENT AUTO 63.7 % (34.0-71.1); PLATELET COUNT,PLT 327 K/mm3 (182-369); RED BLOOD CELL COUNT 4.29 M/mm3 (3.98-5.22); WHITE BLOOD CELL COUNT,WBC 9.42 K/mm3 (3.98-10.04)
[2023-03-10] MEDS ORDERED: Aspirin 81 MG Tab.Chew PO ONE (19:05)
[2023-03-10] MEDS ORDERED: Aluminum Hydroxide/Magnesium Hydroxide/Simethicone Susp 30 ML Cup PO ONE (19:07)
[2023-03-10 19:21] LABS: A/G RATIO 0.7 (1-2); ALANINE AMINOTRANSFERASE,ALT 29 U/L (14-59); ALBUMIN 3.4 g/dl (3.4-5.0); ALKALINE PHOSPHATASE 84 U/L (46-116); ANION GAP 12.3 (5-15); ASPARTATE AMNIOTRANSFERASE,AST 19 U/L (15-37); BILIRUBIN TOTAL 0.3 mg/dL (0.2-1.0); BLOOD UREA NITROGEN,BUN 18 mg/dL (7-18); CARBON DIOXIDE,CO2 26 mEq/L (21-32); CHLORIDE,CL 101 mEq/L (98-107); ESTIMATED GFR 67 mL/min (>60); GLUCOSE RANDOM 111 mg/dL (70-99); POTASSIUM,K 3.3 mEq/L (3.5-5.1); PROTEIN TOTAL,TP 8.3 g/dl (6.4-8.2); SODIUM,NA 136 mEq/L (136-145)
[2023-03-10] MEDS ORDERED: Iopamidol 755 Mg/ML 100 ML Bottle IVPUSH ONE (20:49)
[2023-03-10] MEDS ORDERED: Sodium Chloride 0.9% 100 ML IV SCH (21:00)
[2023-03-10] MEDS ORDERED: Sucralfate Suspension 1 GM/10 ML Cup PO ONE (21:05)
[2023-03-11 03:37] VITALS: BP 162/97; PULSE 66
== END 2023-03-10 21:56 | disposition home or self-care (01) ==
LOC: JD.ED 18:13
DX: K21.9 Gastro-esophageal reflux disease without esophagitis (principal); E03.9 Hypothyroidism, unspecified; Z86.16 Personal history of COVID-19; Z79.899 Other long term (current) drug therapy
CPT/HCPCS: 36415; 71046; 71275; 80053; 84484; 85025; 85379; 93005; 99285; A9270; J3490; Q9967; 93010; 99284